=== PATIENT | female | born 2000 | race Two or more races ===

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

== ENCOUNTER 2021-07-15 12:21 | Emergency (ER) | payer MEDICAID, SELFPAY ==
--- NOTE | 2021-07-15 14:42 | PC.NURSE ---
CALLED, NOT IN WR
--- NOTE | 2021-07-15 14:57 | PC.NURSE ---
CALLED, NOT IN WR
== END 2021-07-15 15:12 | disposition left against medical advice (07) ==
LOC: HO.ED 15:03
PROVIDERS: Emergency Provider Emergency Medicine; PCP General Practice
DX: R10.9 Unspecified abdominal pain (principal); R11.10 Vomiting, unspecified

== ENCOUNTER 2022-12-10 15:49 | Outpatient (REF) | payer MEDICAID, SELFPAY ==
[2022-12-11 14:38] LABS: CT PCR NOT DETECTED (Not Detect.); NG PCR NOT DETECTED (Not Detect.)
[2022-12-13 04:02] LABS: Syphilis Screen Nonreactive (Nonreactive)
[2022-12-13 04:37] LABS: HIV AB/AG Nonreactive (Nonreactive); HIV Num 1 0.11 S/CO (0.00-0.99); ~HepC Num1 0.13 S/CO (0.00-0.79); ~Hepatitis C Antibody Nonreactive (Nonreactive)
== END 2022-12-10 15:50 | disposition home or self-care (01) ==
LOC: HO.HHCL 15:49
PROVIDERS: Visit Provider General Practice
DX: Z11.4 Encounter for screening for human immunodeficiency virus [HIV] (principal); R30.0 Dysuria
CPT/HCPCS: 0353U; 36415; 86780; 86803; 87086; 87389

== ENCOUNTER 2023-01-25 10:38 | Outpatient (REF) | payer MEDICAID, SELFPAY ==
[2023-01-25 11:18] LABS: MANUAL DIFF FLAG NO
[2023-01-25 11:43] LABS: Basophils Percent Auto 0.5 % (0-2); Eosinophils Percent Auto 0.3 % (0-4); Hematocrit 41.1 % (37.0-47.0); Hemoglobin 13.4 g/dl (12.0-16.0); Imm Gran Abs Auto 0.02 X10*3/uL (0.00-0.03); Imm Gran Pct Auto 0.3 % (0.0-0.4); Lymphocytes Absolute Auto 2.4 X10*3/uL (1.2-4.9); Lymphocytes Percent Auto 30.3 % (20-40); Mean Corpuscular HGB Conc 32.6 g/dl (31.0-35.0); Mean Corpuscular Hemoglobin 29.5 pg (27.0-33.0); Mean Corpuscular Volume 90.5 fL (80.0-98.0); Mean Platelet Volume 10.2 fL (9.4-12.3); Monocytes Absolute Auto 0.5 X10*3/uL (0.1-1.2); Monocytes Percent Auto 6.7 % (2-11); Neutrophils Absolute Auto 4.8 x10*3/uL (2.0-8.3); Neutrophils Percent Auto 61.9 % (45-73); Platelet Count 351 X10*3/uL (160-400); Red Blood Count 4.54 X10*6/uL (4.20-5.50); Red Cell Distribution Width 13.6 % (11.0-16.0); White Blood Count 7.8 X10*3/uL (4.8-10.8)
[2023-01-25 12:24] LABS: Alanine Aminotransferase 10 U/L (0-31); Albumin Level 4.7 g/dL (3.5-5.0); Alkaline Phosphatase 96 U/L (39-117); Anion Gap 12 (12-20); Aspartate Amino Transferase 18 U/L (5-31); Bilirubin Total 0.6 mg/dL (0.0-1.0); Blood Urea Nitrogen 8 mg/dL (9-16); Calcium 9.9 mg/dL (8.4-10.2); Carbon Dioxide 25 mmol/L (22-29); Chloride 107 mmol/L (96-108); Estimated Glomerular Filt Rate > 60; Glucose Random 93 mg/dL (60-115); Potassium 3.5 mmol/L (3.3-5.1); Sodium 140 mmol/L (135-145); TSH reflex Free T4 1.11 uIU/mL (0.32-4.0); Total Protein 7.7 g/dL (6.5-8.0)
== END 2023-01-25 10:39 | disposition home or self-care (01) ==
LOC: HO.HHCL 10:38
PROVIDERS: Visit Provider Internal Medicine
DX: G43.709 Chronic migraine without aura, not intractable, without status migrainosus (principal)
CPT/HCPCS: 36415; 80053; 84443; 85025

== ENCOUNTER 2023-01-28 18:03 | Outpatient (REF) | payer MEDICAID, SELFPAY ==
[2023-01-28 19:13] LABS: Creatinine Urine 194.42 mg/dL; Microalbum/Creatinine Ratio Ur 87.9 ug/mg cr (<30)
== END 2023-01-28 18:04 | disposition home or self-care (01) ==
LOC: HO.LNP 18:03
PROVIDERS: Visit Provider Nurse Practitioner Primary Care
DX: R80.9 Proteinuria, unspecified (principal)
CPT/HCPCS: 82040; 82043; 82570

== ENCOUNTER 2023-02-07 13:19 | Emergency (ER) | payer MEDICAID, SELFPAY ==
[2023-02-07 14:22] VITALS: BP 111/75; PULSE 70; RESP 17; TEMP 36.5; O2SAT 99; BMI 22.2
--- NOTE | 2023-02-07 14:22 | ED_ITS ---
HPI - General Adult General Chief complaint: Abdominal Pain Stated complaint: abd and back pain nausea vomiting Time Seen by Provider: 02/07/23 20:49 Source: patient, RN notes reviewed and old records reviewed Mode of arrival: ambulatory Limitations: no limitations History of Present Illness HPI narrative: 23-year-old female presents for evaluation of burning with urination and or abdominal pain. Her symptoms started on Tuesday. She went to her primary doctor and reportedly had a negative UA. She reports that now she has flank pain, blood in her urine She denies any fevers, chills That she tried to go to 2 different ERs last night but the wait was too long and she was never seen Denies any vaginal discharge No other complaints or concerns at this time Related Data Previous Rx's Medication Instructions Recorded cefuroxime axetil 250 mg tablet 250 mg PO Q12H #14 tabs 02/07/23 phenazopyridine 200 mg tablet 200 mg PO TID PRN pain with 02/07/23 (Pyridium) urination 6 doses #6 tabs Allergies Allergy/AdvReac Type Severity Reaction Status Date / Time No Known Allergies Allergy Verified 02/07/23 14:23 Review of Systems 2 Constitutional: Constitutional: Denies chills and Denies fever(s) Eyes: Eyes: Denies blurry vision ENT: Denies sore throat Cardiovascular: Cardiovascular: Denies chest pain, Denies Epigastric Pain and Denies dyspnea Respiratory: Respiratory: Denies dyspnea Gastrointestinal: Gastrointestinal: Reports abdominal pain, Reports nausea and Denies vomiting Genitourinary: Genitourinary: Reports difficulty voiding, Reports dysuria, Reports urinary hesitancy and Denies vaginal discharge Musculoskeletal: Musculoskeletal: Reports back pain Integumentary/Breasts: Skin/Breast: Denies rash PMFSH Social History Social History Advance Directives: No Advance Directives Information Provided: Yes Physical Exam ED Vital Signs: Vital Signs - 24 hr 02/07/23 14:22 02/07/23 20:39 Temperature 97.7 F 99.2 F Pulse Rate 70 75 Respiratory Rate 17 16 Blood Pressure 111/75 110/74 Pulse Oximetry 99 98 Oxygen Delivery Method Room Air Room Air BMI result Body Mass Index 22.2 Const General: healthy appearing, comfortable, no acute distress, alert and awake Nutritional Appearance: well nourished Orientation/consciousness: patient oriented x3 HENMT Head: Yes normocephalic and Yes atraumatic Eyes Eyelids: Yes eyelids normal Conjunctivae: conjunctivae normal Sclerae: sclerae normal Corneas: corneas normal Pupils: Equal, round and reactive pupils present EOM: EOMs intact bilaterally Neck Neck: Yes full ROM Resp Effort & Inspection: normal respiratory effort, able to speak in complete sentences and not labored GI Inspection: No distended Palpation (GI): Soft to palpation, not firm, nontender, no guarding and not rigid General: No CVA tenderness and Yes no CVA tenderness Back/Spine/Pelvis Back: no CVA tenderness and No CVA tenderness Skin General skin exam: no rashes or lesions noted and elasticity normal Neuro General: patient oriented x3 Cranial nerves: Yes Equal, round and reactive pupils present and Yes Bilaterally intact EOM present Cognition (Neuro): normal cognition Extrem Other: Moving all extremities well without any obvious deformities Course Course Course Narrative: RME performed by Chanel Salcido PA-C. Patient is a 23 year old assigned female at presenting to the emergency department with abdominal and back pain. Labs ordered. Patient placed back in the waiting room pending room availability and results. Medications Administered Discontinued Medications Generic Name Dose Route Start Last Admin Trade Name Freq PRN Reason Stop Dose Admin Cefuroxime Axetil 250 mg 02/07/23 20:57 02/07/23 21:05 Cefuroxime Axetil 250 Mg Tablet PO 02/07/23 20:58 250 mg ONCE ONE Administration Phenazopyridine HCl 200 mg 02/07/23 20:58 02/07/23 21:05 Phenazopyridine Hcl 200 Mg Tablet PO 02/07/23 20:59 200 mg ONCE ONE Administration Medical Decision Making Medical Decision Making [facility] Narrative: 23-year-old female presents for evaluation of urinary symptoms. Her UA has blood, leukocyte esterase, bacteria and white cells. No evidence of contamination. Her labs are reassuring, no renal dysfunction, no leukocytosis. Vital signs are stable, no evidence of sepsis or systemic infection. Will treat as a UTI with cefuroxime. I have a very low suspicion for obstructive uropathy/ureterolith. I did offer a CT scan of the abdomen pelvis with to which the patient declined Differential Diagnosis Differential Diagnoses: The differential diagnosis associated with the presentation includes cystitis Pyelonephritis Obstructive uropathy Flank pain Lab Data [facility] Lab Attestation statement: I reviewed the patient's lab results. No leukocytosis, no significant anemia. Electrolyte abnormalities. The patient's chloride is just above normal at 109. Normal renal function 02/07/23 14:49 02/07/23 14:49 Labs: Lab Results 02/07/23 Range/Units 14:49 WBC 7.5 (4.8-10.8) X10*3/uL RBC 4.41 (4.20-5.50) X10*6/uL Hgb 13.2 (12.0-16.0) g/dl Hct 39.9 (37.0-47.0) % MCV 90.5 (80.0-98.0) fL MCH 29.9 (27.0-33.0) pg MCHC 33.1 (31.0-35.0) g/dl RDW 13.5 (11.0-16.0) % Plt Count 283 (160-400) X10*3/uL MPV 9.9 (9.4-12.3) fL Immature Gran % (Auto) 0.3 (0.0-0.4) % Neut % (Auto) 57.3 (45-73) % Lymph % (Auto) 33.2 (20-40) % Crosby % (Auto) 8.1 (2-11) % Eos % (Auto) 0.7 (0-4) % Baso % (Auto) 0.4 (0-2) % Lymph # (Auto) 2.5 (1.2-4.9) X10*3/uL [place]by # (Auto) 0.6 (0.1-1.2) X10*3/uL Eos # (Auto) 0.1 (0.0-0.4) X10*3/uL Baso # (Auto) 0.0 (0.0-0.2) X10*3/uL Abs Immat Gran (auto) 0.02 (0.00-0.03) X10*3/uL Absolute Neuts (auto) 4.3 (2.0-8.3) x10*3/uL Absolute Nucleated RBC 0.000 (0.0-0.012) X10*3/uL Nucleated RBC % (auto) 0.0 (0.0-0.2) /100WBC Sodium 141 (135-145) mmol/L Potassium 3.5 (3.3-5.1) mmol/L Chloride 109 H (96-108) mmol/L Carbon Dioxide 23 (22-29) mmol/L Anion Gap 13 (12-20) BUN 7 L (9-16) mg/dL Creatinine 0.68 (0.5-1.4) mg/dL Estim Creat Clear Calc 93.2 Estimated GFR > 60 Random Glucose 92 (60-115) mg/dL Calcium 9.5 (8.4-10.2) mg/dL Magnesium 2.2 (1.6-2.6) mg/dL Total Bilirubin 0.6 (0.0-1.0) mg/dL AST 17 (5-31) U/L ALT 11 (0-31) U/L Alkaline Phosphatase 98 (39-117) U/L Total Protein 7.4 (6.5-8.0) g/dL Albumin 4.4 (3.5-5.0) g/dL Beta HCG, Quant < 2 mIU/mL Urine Color Yellow Urine Appearance Clear Urine pH 6.5 (5.0-9.0) Ur Specific [place] >= 1.030 H (1.005-1.025) Urine Protein Negative (Neg-Trace) mg/dL Urine Glucose (UA) Negative (Negative) mg/dL Urine Ketones 15 (Negative) mg/dL Urine Blood Trace H (Negative) Urine Nitrite Negative (Negative) Ur Leukocyte Esterase Trace H (Negative) Urine RBC 6-10 H (0-2) /HPF Urine WBC 6-10 H (0-5) /HPF Ur Squamous Epith Cells 6-10 (0-2) /HPF Urine Bacteria 1+ (None Seen) Hyaline Casts 0-2 (0-2) /LPF COVID-19 ([facility]) Negative (Negative) COVID-19 Clin Com See Note Tests considered The following testing was considered but not selected: CT abdomen pelvis without contrast to evaluate for obstructive uropathy Discharge Plan Discharge Clinical Impression: Urinary tract infection Patient Disposition: Home, Self-Care Instructions: Urinary Tract Infection in Women (ED) Additional Instructions: Your blood work was reassuring. UA urinalysis did show signs of infection as well as some blood. Take the antibiotic twice daily for the next 7 days Take Pyridium as directed Return for new or worsening symptom Prescriptions: New cefuroxime axetil 250 mg tablet 250 mg PO Q12H Qty: 14 0RF phenazopyridine [Pyridium] 200 mg tablet 200 mg PO TID PRN (Reason: pain with urination) Qty: 6 0RF Stand Alone Forms: Work/School Release Interventions: ED Discharge Assessment Last Done: 02/07/23 21:14 Discharge Date/Time: 02/07/23 21:14
[2023-02-07 14:55] LABS: MANUAL DIFF FLAG NO
[2023-02-07 14:58] LABS: Basophils Percent Auto 0.4 % (0-2); Eosinophils Absolute Auto 0.1 X10*3/uL (0.0-0.4); Eosinophils Percent Auto 0.7 % (0-4); Hematocrit 39.9 % (37.0-47.0); Hemoglobin 13.2 g/dl (12.0-16.0); Imm Gran Abs Auto 0.02 X10*3/uL (0.00-0.03); Imm Gran Pct Auto 0.3 % (0.0-0.4); Lymphocytes Absolute Auto 2.5 X10*3/uL (1.2-4.9); Lymphocytes Percent Auto 33.2 % (20-40); Mean Corpuscular HGB Conc 33.1 g/dl (31.0-35.0); Mean Corpuscular Hemoglobin 29.9 pg (27.0-33.0); Mean Corpuscular Volume 90.5 fL (80.0-98.0); Mean Platelet Volume 9.9 fL (9.4-12.3); Monocytes Absolute Auto 0.6 X10*3/uL (0.1-1.2); Monocytes Percent Auto 8.1 % (2-11); Neutrophils Absolute Auto 4.3 x10*3/uL (2.0-8.3); Neutrophils Percent Auto 57.3 % (45-73); Platelet Count 283 X10*3/uL (160-400); Red Blood Count 4.41 X10*6/uL (4.20-5.50); Red Cell Distribution Width 13.5 % (11.0-16.0); White Blood Count 7.5 X10*3/uL (4.8-10.8)
[2023-02-07 14:59] LABS: Appearance Urine Clear; Color Urine Yellow; Glucose Urine UA Negative (Negative); Leukocyte Esterase Urine Trace (Negative); Nitrite Urine Negative (Negative); PH 6.5 (5.0-9.0); Specific Gravity - Urine >= 1.030 (1.005-1.025); UMIC TRIGGER UACC YES; Urine Blood Trace (Negative); Urine Ketones 15 mg/dL (Negative); Urine Protein Negative (Neg-Trace)
[2023-02-07 15:04] LABS: Bacteria Urine 1+ (None Seen); Hyaline Casts Urine 0-2 /LPF (0-2); UACC Culture Trigger YES
[2023-02-07 15:20] LABS: Alanine Aminotransferase 11 U/L (0-31); Albumin Level 4.4 g/dL (3.5-5.0); Alkaline Phosphatase 98 U/L (39-117); Anion Gap 13 (12-20); Aspartate Amino Transferase 17 U/L (5-31); Bilirubin Total 0.6 mg/dL (0.0-1.0); Blood Urea Nitrogen 7 mg/dL (9-16); Calcium 9.5 mg/dL (8.4-10.2); Carbon Dioxide 23 mmol/L (22-29); Chloride 109 mmol/L (96-108); Creatinine Clr Calc Pharmacy 93.2; Estimated Glomerular Filt Rate > 60; Glucose Random 92 mg/dL (60-115); HCG Quantitative < 2 mIU/mL; Magnesium 2.2 mg/dL (1.6-2.6); Potassium 3.5 mmol/L (3.3-5.1); Sodium 141 mmol/L (135-145); Total Protein 7.4 g/dL (6.5-8.0)
[2023-02-07 15:21] LABS: COVID-19 Test Negative (Negative); IDNOW Serial# 08D9AD1C
[2023-02-07 20:39] VITALS: BP 110/74; PULSE 75; RESP 16; TEMP 37.3; O2SAT 98
[2023-02-07] MEDS: Phenazopyridine HCL 200 MG TABLET PO (21:05)
== END 2023-02-07 21:14 | disposition home or self-care (01) ==
PROVIDERS: Physician Assistant Medical; Emergency Provider Internal Medicine; PCP General Practice
DX: N39.0 Urinary tract infection, site not specified (principal); Z20.822 Contact with and (suspected) exposure to COVID-19
CPT/HCPCS: 80053; 81001; 81003; 83735; 84702; 85025; 87086; 87635; 99283; 99284

== ENCOUNTER 2023-03-31 08:32 | Emergency (ER) | payer MEDICAID, SELFPAY ==
[2023-03-31 08:35] VITALS: BP 108/70; PULSE 79; RESP 17; TEMP 36.1; O2SAT 100; BMI 22.3
--- NOTE | 2023-03-31 08:39 | ED.GENADULT ---
HPI - General Adult General Chief complaint: General Medical Stated complaint: Low Back Abd Pain Nausea Time Seen by Provider: 03/31/23 08:38 Source: patient Mode of arrival: ambulatory Limitations: no limitations History of Present Illness HPI narrative: Patient is a 23-year-old female presenting to the emergency department with complaint of lower abdominal pain, right flank pain and nausea since yesterday morning. She denies fevers. Denies any vomiting, diarrhea, or constipation. Denies any abnormal vaginal discharge. States that she is frequently tested for STIs, was most recently tested 3 weeks ago and has not had any new partners since that time. Denies any urinary frequency, dysuria or hematuria. States the pain is intermittent. MD complaint: lower abdominal pain Onset (ago): day(s) Location: abdomen Radiation: flank (right) Severity: moderate Quality: aching Pain Consistency: intermittent Relieving factors: none Exacerbating factors: none Associated symptoms: nausea/vomiting (reports nausea, denies vomiting) Treatments prior to arrival: none Related Data Previous Rx's Medication Instructions Recorded cefuroxime axetil 250 mg tablet 250 mg PO Q12H #14 tabs 02/07/23 phenazopyridine 200 mg tablet 200 mg PO TID PRN pain with 02/07/23 (Pyridium) urination 6 doses #6 tabs nitrofurantoin macrocrystal 100 mg 100 mg PO BID 5 days #10 caps 03/31/23 capsule phenazopyridine 200 mg tablet 200 mg PO TID PRN pain #6 tabs 03/31/23 Allergies Allergy/AdvReac Type Severity Reaction Status Date / Time No Known Allergies Allergy Verified 02/07/23 14:23 Review of Systems Review of Systems: As per HPI. Yes all other systems are reviewed and are negative Constitutional: Constitutional: Reports as per HPI [facility] Social History Social History Alcohol intake: current Alcohol intake frequency: holidays/special occasions only Smoked in Last 30 Days: No Use of substances other than those prescribed or required for medical reasons: Yes Substance Use Type: Marijuana Advance Directives: No Physical Exam ED Vital Signs: Vital Signs - 24 hr 03/31/23 08:35 03/31/23 09:01 Temperature 96.9 F 98.4 F Pulse Rate 79 79 Respiratory Rate 17 16 Blood Pressure 108/70 103/70 Pulse Oximetry 100 100 Oxygen Delivery Method Room Air Room Air BMI result Body Mass Index 22.3 Vital signs have been reviewed and appear to be correct. Blood pressure normal. Heart rate normal. Respiratory rate normal. Temperature normal. Oxygen saturation normal. Const General: cooperative, healthy appearing and no acute distress Orientation/consciousness: oriented to person, oriented to place, oriented to time and patient oriented x3 Limitations: no limitations HENMT Head: Yes normocephalic and Yes atraumatic Ears: external ears normal General nose exam: Normal external nose present Face and sinus: Yes face symmetric Mouth: oropharynx normal and moist mucous membranes Throat: Yes uvula midline Eyes Pupils: Equal, round and reactive pupils present Neck Neck: Yes normal visual inspection and Yes supple Resp Effort & Inspection: normal respiratory effort and able to speak in complete sentences Auscultation: clear to auscultation bilaterally Cardio Rate: regular rate Rhythm: regular rhythm Heart sounds: S1 normal heart sound present and S2 normal heart sound present GI Palpation (GI): Soft to palpation and nontender Auscultation: normoactive bowel sounds General: Yes no CVA tenderness Back/Spine/Pelvis Back: no CVA tenderness Skin General skin exam: elasticity normal and turgor normal Neuro General: oriented to person, oriented to place, oriented to time, patient oriented x3, moves all extremities, no focal motor deficits and CN's II-XI intact bilaterally Cranial nerves: Yes Equal, round and reactive pupils present Cognition (Neuro): normal cognition Extrem General: Yes full ROM, Yes no pedal edema and Yes no calf tenderness Psych Mental Status: mental status grossly normal Affect: normal affect Thought process: Normal thought process present Medical Decision Making Medical Decision Making MDM Narrative: Patient is a 23-year-old female presenting to the emergency department with complaint of lower abdominal pain, right flank pain and nausea since yesterday morning. On exam patient is awake, A+Ox3, VS WNL, afebrile, normal neurological exam without focal deficits, physical exam findings as above. Given reported symptoms and physical exam findings, initial differential includes UTI/pyelonephritis, ovarian cyst, STI. Do not suspect ovarian torsion, appendicitis. UA noted to have 2+ leukocytes, greater than 50 wbc's, trace blood, 1+ bacteria. Will treat for UTI at this time. CT NG urine pending, will update patient with any positive results. Offered pelvic exam which patient declined citing recent exam. Low suspicion for calculi. Will treat with Macrobid and Pyridium. Patient specifically requesting referral to GI, now stating she intermittently has abnormal bowel movements. Will put referral on d/c paperwork. Return precautions discussed at bedside. Instructed patient to follow-up with PCP. Patient verbalized understanding of and agreement with plan. Differential Diagnosis Differential Diagnoses: The differential diagnosis associated with the presentation includes As per [facility]. Lab Data [facility] Lab Attestation statement: I reviewed the patient's lab results. As per [facility]. Labs: Lab Results 03/31/23 Range/Units 09:01 Urine Color Yellow Urine Appearance Cloudy Urine pH 7.0 (5.0-9.0) Ur Specific [place] 1.020 (1.005-1.025) Urine Protein Negative (Neg-Trace) mg/dL Urine Glucose (UA) Negative (Negative) mg/dL Urine Ketones Negative (Negative) mg/dL Urine Blood Trace H (Negative) Urine Nitrite Negative (Negative) Ur Leukocyte Esterase Moderate (2+) H (Negative) Urine RBC 3-5 H (0-2) /HPF Urine WBC >50 H (0-5) /HPF Ur Squamous Epith Cells 6-10 (0-2) /HPF Urine Bacteria 1+ (None Seen) Hyaline Casts 0-2 (0-2) /LPF Urine Test NEGATIVE (NEGATIVE) External Record Review External record reviewed: Inpatient record, Office record and Outpatient record Prescription Management I considered prescription management with: Antibiotic Discharge Plan Discharge Clinical Impression: Urinary tract infection Qualifiers: Urinary tract infection type: acute cystitis Hematuria presence: with hematuria Qualified Code(s): N30.01 - Acute cystitis with hematuria Patient Disposition: Home, Self-Care Instructions: Urinary Tract Infection in Women (DC) Additional Instructions: You have been evaluated in the emergency department today for your urinary symptoms. Your evaluation, including urinalysis, suggests that your symptoms are due to urinary tract infection. Please take your prescribed antibiotics for the full course of medication as directed. Please follow-up with your primary care provider within 2 days. Return to the emergency department if you experience fevers 100.4? F or greater, worsening or uncontrolled pain, vomiting, flank pain, or for any other concerning symptoms. Prescriptions: New nitrofurantoin macrocrystal 100 mg capsule 100 mg PO BID 5 Days Qty: 10 0RF Rx Instructions: must administer with a meal/food phenazopyridine 200 mg tablet 200 mg PO TID PRN (Reason: pain) Qty: 6 0RF No Action cefuroxime axetil 250 mg tablet 250 mg PO Q12H Qty: 14 0RF phenazopyridine [Pyridium] 200 mg tablet 200 mg PO TID PRN (Reason: pain with urination) Qty: 6 0RF Referrals: [facility] [Provider Group]
[2023-03-31 09:01] VITALS: BP 103/70; PULSE 79; RESP 16; TEMP 36.9; O2SAT 100
--- NOTE | 2023-03-31 09:05 | PC.NURSE ---
this RN resumed care of pt at this time - a&ox3, vss and up to date at this time. pt comes in today d/t increasingly abd pain/nausea/dizziness/lightheadedness/lower back pain x 1 day. pain started yesterday. pt denies vomiting but verbalizes she has been having some diarrhea. denies blood in stool. denies fever/chills/urinary sx. pt states status of is unknown. urine obtained/sent to lab by [facility]. pt speaking w/ provider at this time - pt aware of plan of care at this time. respirations even and unlabored. call [facility] placed within reach.
[2023-03-31 09:14] LABS: Appearance Urine Cloudy; Color Urine Yellow; Glucose Urine UA Negative (Negative); Leukocyte Esterase Urine Moderate (2+) (Negative); Nitrite Urine Negative (Negative); UMIC TRIGGER UACC YES; Urine Blood Trace (Negative); Urine Ketones Negative (Negative); Urine Protein Negative (Neg-Trace)
[2023-03-31 09:18] LABS: Bacteria Urine 1+ (None Seen); Hyaline Casts Urine 0-2 /LPF (0-2); UACC Culture Trigger YES; WBC Urine >50 /HPF (0-5)
[2023-03-31 09:21] LABS: UPreg QC Valid YES; Urine Pregnancy NEGATIVE (NEGATIVE)
== END 2023-03-31 09:58 | disposition home or self-care (01) ==
PROVIDERS: Emergency Provider Emergency Medicine; PCP General Practice
DX: N30.01 Acute cystitis with hematuria (principal); Z79.899 Other long term (current) drug therapy
CPT/HCPCS: 81001; 81025; 87086; 99283; 99284

== ENCOUNTER 2023-06-01 10:47 | Outpatient (REF) | payer MEDICAID, SELFPAY ==
[2023-06-02 07:13] LABS: HCG Tumor Marker <5 mIU/mL
== END 2023-06-01 10:48 | disposition home or self-care (01) ==
LOC: HO.HHCL 10:47
PROVIDERS: Visit Provider Advanced Practice Midwife
DX: N93.9 Abnormal uterine and vaginal bleeding, unspecified (principal)
CPT/HCPCS: 36415; 84702

== ENCOUNTER 2023-07-19 10:06 | Outpatient (REF) | payer MEDICAID, SELFPAY ==
[2023-07-19 15:38] LABS: TSH reflex Free T4 0.62 uIU/mL (0.32-4.0)
[2023-07-20 20:33] LABS: Transglutaminase Ab IgG <1.0 U/mL; Transglutaminase IgA <1.0 U/mL
== END 2023-07-19 10:07 | disposition home or self-care (01) ==
LOC: HO.LAB 10:06
PROVIDERS: PCP General Practice; Visit Provider Nurse Practitioner
DX: R63.4 Abnormal weight loss (principal); R14.0 Abdominal distension (gaseous); R11.0 Nausea; R19.7 Diarrhea, unspecified
CPT/HCPCS: 36415; 84443; 86003; 86140; 86364; 99212

== ENCOUNTER 2023-07-19 10:06 | Outpatient (AMB) | payer MEDICAID, SELFPAY ==
--- NOTE | 2023-07-19 10:07 | MHC.OFFVIS ---
Intake Vital Signs 07/19/23 10:22 Height 5 ft Weight 108 lb 14.534 oz BMI 21.3 BP 100/61 Blood Pressure Location Rt brachial Position Sitting Intake Visit Reasons: Irritable bowel syndrome Intake Note: New patient in office today for Irritable bowel syndrome. CC: Patient reports she has stopped eating a lot of foods out of her diet because they hurt her stomach. She reports nausea sometimes. Patient c/o constipation most of the time, a lot of hiccups, and abdominal pain if she eats red meats or some other foods that affect her stomach. Per patient she was diagnosed with IBS at a GI at [facility]. Access Database Developer Required: No Accompanied by: Self / Same As Patient Allergies lactose Allergy (Severe, Verified 07/19/23 10:37) Vomiting orange Allergy (Intermediate, Verified 07/19/23 10:37) Itching No Known Drug Allergies Allergy (Verified 07/19/23 10:37) none HPI Irritable bowel syndrome HPI Details 23-year-old female here for initial evaluation of IBS. She is referred by Mago Lara of [facility]. PMX ER diagnosis of colitis (not our ER) Family history of Crohn's disease Asthma Allergic rhinitis Migraines Lactose intolerance Cannabis use disorder severe Alcohol use disorder Major depressive disorder ? Interstitial cystitis * SURGICAL HISTORY Tonsillectomy EGD/colonoscopy * ALLERGIES: NKDA * [employer] LABS: None since 01/2023 TODAY'S VISIT She says she was dx'd with IBS 7 years ago at [facility] child gastro, they did an EGD/colonoscopy and was told it was IBS then I never saw them again. She will move her bowels tid normal formed but she has to strain and push and massage her stomach to get it out, r/t pain when trying to move her bowels. She has a lot of cramping. She has trouble with cows milk but she tolerated ice cream and some cheese. Stress also is a problem. She says her bowels manifest as CIC, she only has diarrhea with red meat and too much dairy. Crohns runs in her family and TICS along with a paternal uncle with CRC. Her brother has Celiac disease. Her father had GERD and PUD. She is concerned about her weight loss saying my diet is so limited, but when I ask what she limits it is only red meat or dairy. She eats a lot of rice and beans as this is what her mom cooks, she tolerates chicken and fish. Her appetite is variable, when she experiences a lot of bloating she has early satiety, but at times I eat platefuls and platefuls. She has a lot of bloating that she can not connect to certain foods and this will cause stabbing pains over the entire abd periumbilically and below the umbilicus that moves. This causes nausea and at times she will make herself vomit to feel better but this does not cause vomiting of itself. She had an ER visit at [facility] and they said something about colitis, but I don't know what kind. I can't find this CT under [facility] website, but she has also been seen at [facility]. Get records from [facility]. Food allergy testing, [place] of [place] as there is a very strong FHX of GB disease in mother, grandmother, paternal cousin. st loss form 121 to 108 currently Return office visit in 4 weeks to go over what we have at that point. [facility] Surgical History H/O wisdom tooth extraction S/P tonsillectomy History of esophagogastroduodenoscopy (EGD) H/O colonoscopy Family History Father Cancer of kidney Mother Cervical cancer Paternal Uncle Colon cancer Maternal Aunt Breast cancer Paternal Grandfather Prostate cancer Social History Household Members: Family Housing: Apartment 75 years or older and lives alone: No Alcohol intake: current Alcohol intake frequency: a few times a week Comment: weekends Patient Tobacco Use Status: Never used Tobacco Substance Use Type: Marijuana Review of Systems Const Denies fatigue, Denies fever(s), Denies night sweats, Denies poor appetite and Reports weight loss Eyes Details: glasses Reports requires corrective lenses ENT Reports Normal hearing present, Denies dental pain, Denies dysphagia, Denies hearing loss, Denies mouth pain, Denies odynophagia, Denies throat swelling, Denies tongue swelling and Reports other (Dentition adequate) Card Reports no additional complaints Resp Reports no additional complaints GI Details: Reports abdominal pain, Denies melena, Reports bloating, Denies hematochezia, Reports constipation, Denies GI cramping, Denies dysphagia, Denies excessive flatus, Denies early satiety, Reports dyspepsia, Reports heartburn, Reports diarrhea, Reports nausea, Denies odynophagia, Denies vomiting and Denies hematemesis Skin/Breast Denies pruritus, Denies lesions, Denies rash and Denies jaundice Neuro Reports Normal hearing present and Denies Abnormal speech present Psych Reports anxiety Endo Denies fatigue Aller/Immun Denies throat swelling and Denies tongue swelling Physical Exam Vital Signs: Last Vital Signs BP 100/61 07/19/23 10:22 BMI result Body Mass Index 21.3 Const General: cooperative, no acute distress, well developed and well groomed Nutritional Appearance: average body habitus and well nourished Orientation/consciousness: oriented to person, oriented to place and oriented to time Limitations: No language barrier HEENT Head: Yes normocephalic and Yes atraumatic Eyes General: appearance normal, both eyes and all related structures Pupils: Equal, round and reactive pupils present Neck Neck: Yes normal visual inspection and Yes no lymphadenopathy Thyroid: Thyroid normal Resp Effort & Inspection: normal respiratory effort and able to speak in complete sentences Auscultation: clear to auscultation bilaterally Cardio Rate: regular rate Rhythm: regular rhythm Heart sounds: Normal, physiologic split S2 sound present Peripheral pulses: radial pulses present and posterior tibial pulses present GI Inspection: No distended and No Abdominal panniculus present Palpation (GI): Soft to palpation, nontender, no guarding, not rigid and No hepatosplenomegaly present Percussion: Yes normal to percussion Auscultation: normal bowel sounds Rectal Exam - Female: deferred Skin General skin exam: no rashes or lesions noted, turgor normal, skin not dry, no jaundice, No spider nevi and no striae Rashes: no rashes Nails: normal Neuro General: oriented to person, oriented to place and oriented to time Cranial nerves: Yes Equal, round and reactive pupils present and Yes Normal hearing present Speech: No Abnormal speech present Extrem General: Yes normal to inspection, No clubbing, No cyanosis and No edema Psych Appearance: grossly normal and well kempt Mental Status: mental status grossly normal Speech and movement: Normal speech and movement present Affect: normal affect Attitude: cooperative Thought process: Normal thought process present and not confabulating Thought content: Normal thought content present Insight: Limited insight present (Psych) Judgement: Limited judgement present (Psych) Assessment & Plan Assessment & Plan (1) Weight loss: Code(s): R63.4 - Abnormal weight loss (2) Abdominal bloating: Code(s): R14.0 - Abdominal distension (gaseous) (3) Nausea: Code(s): R11.0 - Nausea (4) Diarrhea: Code(s): R19.7 - Diarrhea, unspecified Plan She says she was dx'd with IBS 7 years ago at [facility] child [facility], they did an EGD/colonoscopy and was told it was IBS then I never saw them again. She will move her bowels tid normal formed but she has to strain and push and massage her stomach to get it out, r/t pain when trying to move her bowels. She has a lot of cramping. She has trouble with cows milk but she tolerated ice cream and some cheese. Stress also is a problem. She says her bowels manifest as CIC, she only has diarrhea with red meat and too much dairy. Crohns runs in her family and TICS along with a paternal uncle with CRC. Her brother has Celiac disease. Her father had GERD and PUD. She is concerned about her weight loss saying my diet is so limited, but when I ask what she limits it is only red meat or dairy. She eats a lot of rice and beans as this is what her mom cooks, she tolerates chicken and fish. Her appetite is variable, when she experiences a lot of bloating she has early satiety, but at times I eat platefuls and platefuls. She has a lot of bloating that she can not connect to certain foods and this will cause stabbing pains over the entire abd periumbilically and below the umbilicus that moves. This causes nausea and at times she will make herself vomit to feel better but this does not cause vomiting of itself. She had an ER visit at [facility] and they said something about colitis, but I don't know what kind. I can't find this CT under [facility] website, but she has also been seen at [facility]. Get records from [facility]. Food allergy testing, [place] of [place] as there is a very strong FHX of GB disease in mother, grandmother, paternal cousin. st loss form 121 to 108 currently Return office visit in 4 weeks to go over what we have at that point. Orders: Orders Rast Allergen Today R11.0 - Nausea, R14.0 - Abdominal distension (gaseous), R19.7 - Diarrhea, unspecified, R63.4 - Abnormal weight loss Transglutaminase IgA Today R11.0 - Nausea, R14.0 - Abdominal distension (gaseous), R19.7 - Diarrhea, unspecified, R63.4 - Abnormal weight loss Transglutaminase Ab IgG Today R11.0 - Nausea, R14.0 - Abdominal distension (gaseous), R19.7 - Diarrhea, unspecified, R63.4 - Abnormal weight loss TSH reflex Free T4 Today R11.0 - Nausea, R14.0 - Abdominal distension (gaseous), R19.7 - Diarrhea, unspecified, R63.4 - Abnormal weight loss C Reactive Protein Today R11.0 - Nausea, R14.0 - Abdominal distension (gaseous), R19.7 - Diarrhea, unspecified, R63.4 - Abnormal weight loss Calprotectin, Fecal Today R11.0 - Nausea, R14.0 - Abdominal distension (gaseous), R19.7 - Diarrhea, unspecified, R63.4 - Abnormal weight loss Pancreatic Elastase-1 Today R11.0 - Nausea, R14.0 - Abdominal distension (gaseous), R19.7 - Diarrhea, unspecified, R63.4 - Abnormal weight loss US abdomen complete Today R11.0 - Nausea, R14.0 - Abdominal distension (gaseous), R19.7 - Diarrhea, unspecified, R63.4 - Abnormal weight loss Coding Level of Care Code New Pt Level 3 (13794) Diagnoses Weight loss R63.4 Abdominal bloating R14.0 Nausea R11.0 Diarrhea R19.7
[2023-07-19 10:22] VITALS: BP 100/61; BMI 21.3
== END 2023-07-19 11:35 | disposition home or self-care (01) ==
PROVIDERS: PCP General Practice; Visit Provider Nurse Practitioner
DX: R63.4 Abnormal weight loss (principal); R14.0 Abdominal distension (gaseous); R11.0 Nausea; R19.7 Diarrhea, unspecified
CPT/HCPCS: 99203

== ENCOUNTER 2023-08-01 08:37 | Outpatient (REF) | payer MEDICAID, SELFPAY ==
--- NOTE | ~2023-08-01 | US_ITS ---
EXAMINATION: US ABDOMEN COMPLETE CLINICAL INFORMATION: Abnormal weight loss. COMPARISON: None available. TECHNIQUE: Real-time imaging of the abdominal viscera. FINDINGS: PANCREAS: Normal. ABDOMINAL AORTA: The proximal, mid, and distal segments are normal in caliber. INFERIOR VENA CAVA: Visualized portions are normal. LIVER: Normal. The liver is normal in size. The liver contour is normal. Parenchymal echogenicity is normal. No focal hepatic lesion. There is no intrahepatic biliary duct dilatation seen. GALLBLADDER: Normal. Contracted but grossly unremarkable. COMMON BILE DUCT: Normal in caliber measuring 0.25 cm in diameter. RIGHT KIDNEY: Normal. No hydronephrosis. No renal calculi or focal parenchymal lesions. The kidney measures 11.2 cm in maximum dimension. LEFT KIDNEY: Normal. No hydronephrosis. No renal calculi or focal parenchymal lesions. The kidney measures 11.7 cm in maximum dimension. SPLEEN: Normal. The spleen measures 10.2 cm in maximum dimension. FREE FLUID: None. US/US abdomen complete IMPRESSION: Unremarkable abdominal ultrasound.
== END 2023-08-01 08:38 | disposition home or self-care (01) ==
LOC: HO.HMGCX 08:37
PROVIDERS: PCP General Practice; Visit Provider Nurse Practitioner
DX: R63.4 Abnormal weight loss (principal); R14.0 Abdominal distension (gaseous); R11.0 Nausea; R19.7 Diarrhea, unspecified
CPT/HCPCS: 76700

== ENCOUNTER 2023-08-02 08:25 | Emergency (ER) | payer MEDICAID, SELFPAY ==
[2023-08-02 08:57] VITALS: BP 106/62; PULSE 80; RESP 18; TEMP 36.6; O2SAT 98; BMI 17.8
[2023-08-02 12:04] LABS: MANUAL DIFF FLAG NO
[2023-08-02 12:05] LABS: Basophils Percent Auto 0.4 % (0-2); Eosinophils Absolute Auto 0.1 X10*3/uL (0.0-0.4); Eosinophils Percent Auto 0.6 % (0-4); Hematocrit 38.4 % (37.0-47.0); Hemoglobin 12.8 g/dl (12.0-16.0); Imm Gran Abs Auto 0.02 X10*3/uL (0.00-0.03); Imm Gran Pct Auto 0.2 % (0.0-0.4); Lymphocytes Absolute Auto 2.5 X10*3/uL (1.2-4.9); Lymphocytes Percent Auto 29.7 % (20-40); Mean Corpuscular HGB Conc 33.3 g/dl (31.0-35.0); Mean Corpuscular Hemoglobin 29.9 pg (27.0-33.0); Mean Corpuscular Volume 89.7 fL (80.0-98.0); Mean Platelet Volume 9.2 fL (9.4-12.3); Monocytes Absolute Auto 0.5 X10*3/uL (0.1-1.2); Monocytes Percent Auto 6.4 % (2-11); Neutrophils Absolute Auto 5.2 x10*3/uL (2.0-8.3); Neutrophils Percent Auto 62.7 % (45-73); Platelet Count 365 X10*3/uL (160-400); Red Blood Count 4.28 X10*6/uL (4.20-5.50); Red Cell Distribution Width 13.2 % (11.0-16.0); White Blood Count 8.3 X10*3/uL (4.8-10.8)
[2023-08-02 12:24] LABS: Alanine Aminotransferase 15 U/L (0-31); Albumin Level 4.1 g/dL (3.5-5.0); Alkaline Phosphatase 100 U/L (39-117); Anion Gap 11 (12-20); Aspartate Amino Transferase 20 U/L (5-31); Bilirubin Total 0.2 mg/dL (0.0-1.0); Blood Urea Nitrogen 6 mg/dL (9-16); Calcium 9.2 mg/dL (8.4-10.2); Carbon Dioxide 24 mmol/L (22-29); Chloride 109 mmol/L (96-108); Creatinine Clr Calc Pharmacy 111.4; Estimated Glomerular Filt Rate > 60; Glucose Random 92 mg/dL (60-115); Lipase 25 U/L (8-78); Potassium 3.6 mmol/L (3.3-5.1); Sodium 140 mmol/L (135-145); Total Protein 7.2 g/dL (6.5-8.0)
[2023-08-02 12:35] LABS: HCG Quantitative < 2 mIU/mL
== END 2023-08-02 16:23 | disposition left against medical advice (07) ==
PROVIDERS: Physician Assistant Medical; Emergency Provider Emergency Medicine; PCP General Practice
DX: R11.10 Vomiting, unspecified (principal); R10.9 Unspecified abdominal pain; Z79.899 Other long term (current) drug therapy
CPT/HCPCS: 36415; 80053; 83690; 84702; 85025; 99281; 99283

== ENCOUNTER 2023-08-16 08:05 | Outpatient (AMB) | payer MEDICAID, SELFPAY ==
--- NOTE | 2023-08-16 08:06 | MHC.OFFVIS ---
Vital Signs 08/16/23 08:09 Height 5 ft 0.5 in Weight 112 lb 6.972 oz BMI 21.6 BP 99/72 Blood Pressure Location Rt brachial Position Sitting Pulse 94 Intake Visit Reasons: 4 wk follow up Irritable bowel syndrome Intake Note: Kary presents in the office as a 4 week follow up for IBS. CC: She states that she was recently in the ED - she had the stomach bug with diarrhea and vomiting and she was admitted for dehydration. She states that she is feeling okay since then but her stomach is still sensitive. 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 She will move her bowels tid normal formed but she has to strain and push and massage her stomach to get it out, r/t pain when trying to move her bowels. She has a lot of cramping. She has trouble with cows milk but she tolerated ice cream and some cheese. Stress also is a problem. She says her bowels manifest as CIC, she only has diarrhea with red meat and too much dairy. Crohns runs in her family and TICS along with a paternal uncle with CRC. Her brother has Celiac disease. Her father had GERD and PUD. She is concerned about her weight loss saying my diet is so limited, but when I ask what she limits it is only red meat or dairy. She eats a lot of rice and beans as this is what her mom cooks, she tolerates chicken and fish. Her appetite is variable, when she experiences a lot of bloating she has early satiety, but at times I eat platefuls and platefuls. She has a lot of bloating that she can not connect to certain foods and this will cause stabbing pains over the entire abd periumbilically and below the umbilicus that moves. This causes nausea and at times she will make herself vomit to feel better but this does not cause vomiting of itself. She had an ER visit at [facility] and they said something about colitis, but I don't know what kind. I can't find this CT under [facility] website, but she has also been seen at [facility]. Get records from [facility]. Food allergy testing, US of GB as there is a very strong FHX of GB disease in mother, grandmother, paternal cousin. st loss form 121 to 108 currently Return office visit in 4 weeks to go over what we have at that point. Orders: Orders Rast Allergen Today R11.0 - Nausea, R14.0 - Abdominal distension (gaseous), R19.7 - Diarrhea, unspecified, R63.4 - Abnormal weight loss Transglutaminase IgA Today R11.0 - Nausea, R14.0 - Abdominal distension (gaseous), R19.7 - Diarrhea, unspecified, R63.4 - Abnormal weight loss Transglutaminase Ab IgG Today R11.0 - Nausea, R14.0 - Abdominal distension (gaseous), R19.7 - Diarrhea, unspecified, R63.4 - Abnormal weight loss TSH reflex Free T4 Today R11.0 - Nausea, R14.0 - Abdominal distension (gaseous), R19.7 - Diarrhea, unspecified, R63.4 - Abnormal weight loss C Reactive Protein Today R11.0 - Nausea, R14.0 - Abdominal distension (gaseous), R19.7 - Diarrhea, unspecified, R63.4 - Abnormal weight loss Calprotectin, Fecal Today R11.0 - Nausea, R14.0 - Abdominal distension (gaseous), R19.7 - Diarrhea, unspecified, R63.4 - Abnormal weight loss Pancreatic Elastase-1 Today R11.0 - Nausea, R14.0 - Abdominal distension (gaseous), R19.7 - Diarrhea, unspecified, R63.4 - Abnormal weight loss US abdomen complete Today R11.0 - Nausea, R14.0 - Abdominal distension (gaseous), R19.7 - Diarrhea, unspecified, R63.4 - Abnormal weight loss LABS: Laboratory Tests 07/19/23 07/19/23 08/02/23 12:10 12:10 11:49 C-Reactive Protein 0.10 Lipase 25 Tiss Transglutamin IgG <1.0 Tiss Transglutamin IgA <1.0 THE RAST REQUISITION FORM WAS ILLEGIBLE THE TEST WAS NOT PERFORMED, IT DOES NOT APPEAR THAT THE FECAL CALPROTECTIN WAS OBTAINED ULTRASOUND OF THE ABDOMEN 08/03/23 FINDINGS: PANCREAS: Normal. ABDOMINAL AORTA: The proximal, mid, and distal segments are normal in caliber. INFERIOR VENA CAVA: Visualized portions are normal. LIVER: Normal. The liver is normal in size. The liver contour is normal. Parenchymal echogenicity is normal. No focal hepatic lesion. There is no intrahepatic biliary duct dilatation seen. GALLBLADDER: Normal. Contracted but grossly unremarkable. COMMON BILE DUCT: Normal in caliber measuring 0.25 cm in diameter. RIGHT KIDNEY: Normal. No hydronephrosis. No renal calculi or focal parenchymal lesions. The kidney measures 11.2 cm in maximum dimension. LEFT KIDNEY: Normal. No hydronephrosis. No renal calculi or focal parenchymal lesions. The kidney measures 11.7 cm in maximum dimension. SPLEEN: Normal. The spleen measures 10.2 cm in maximum dimension. FREE FLUID: None. US/US abdomen complete IMPRESSION: Unremarkable abdominal ultrasound. TODAY'S VISIT She was seen in the ER recently and had labs that were all normal except for possible dehydration. There does not appear to be an ER note because she left without treatment. She went home and tried to hydrate has been trying to force herself to eat more because she is lost more weight again. Her BMI is currently 17 she is down another 10-15 lb which is quite concerning. Right now her nausea is quiescent as is her diarrhea. I am going to try putting her on Megace to increase her appetite along with a trial of dicyclomine because despite solid stool she still has severe bloating. I think simethicone is also reasonable. At this point we need to spread a wider net. We are going to get a CT scan of the abdomen pelvis since she has a past history of possible colon inflammation in the right lower quadrant area, also going to get an EGD and colonoscopy along with a gastric emptying study. I will also provide her with more Zofran for her episodic nausea and vomiting. At this point I will see her in 6 weeks to see how she is progressing on the medications. She is going to go back to recollect the RAST since the requisition was illegible and she is also going to do the stool studies. 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 [facility] Medical History Weight loss Surgical History H/O wisdom tooth extraction S/P tonsillectomy History of esophagogastroduodenoscopy (EGD) H/O colonoscopy Family History Father Cancer of kidney Mother Cervical cancer Paternal Uncle Colon cancer Maternal Aunt Breast cancer Paternal Grandfather Prostate cancer Social History Household Members: Family Housing: Apartment Alcohol intake: current Alcohol intake frequency: a few times a week Comment: weekends Patient Tobacco Use Status: Never used Tobacco Substance Use Type: Marijuana Review of Systems Const Denies fatigue, Denies fever(s), Denies night sweats, Reports poor appetite and Reports weight loss ENT Reports Normal hearing present, Denies dental pain, Denies dysphagia, Denies hearing loss, Denies mouth pain, Denies odynophagia, Denies throat swelling, Denies tongue swelling and Reports other (Dentition adequate) Card Reports no additional complaints Resp Reports no additional complaints GI Details: Reports abdominal pain, Denies melena, Reports bloating, Denies hematochezia, Denies constipation, Denies GI cramping, Denies dysphagia, Denies excessive flatus, Denies early satiety, Denies heartburn, Reports diarrhea, Reports nausea, Denies odynophagia, Reports vomiting and Denies hematemesis Skin/Breast Denies pruritus, Denies lesions, Denies rash and Denies jaundice Neuro Reports Normal hearing present and Denies Abnormal speech present Endo Denies fatigue Aller/Immun Denies throat swelling and Denies tongue swelling Physical Exam Vital Signs: Last Vital Signs Pulse 94 08/16/23 08:09 BP 99/72 08/16/23 08:09 BMI result Body Mass Index 21.6 Const General: cooperative, no acute distress, well developed and well groomed Nutritional Appearance: well nourished and underweight Orientation/consciousness: oriented to person, oriented to place and oriented to time Limitations: No language barrier HEENT Head: Yes normocephalic and Yes atraumatic Eyes General: appearance normal, both eyes and all related structures Pupils: Equal, round and reactive pupils present Neck Neck: Yes normal visual inspection and Yes no lymphadenopathy Thyroid: Thyroid normal Resp Effort & Inspection: normal respiratory effort and able to speak in complete sentences Auscultation: clear to auscultation bilaterally Cardio Rate: regular rate Rhythm: regular rhythm Heart sounds: Normal, physiologic split S2 sound present Peripheral pulses: radial pulses present and posterior tibial pulses present GI Inspection: No distended and No Abdominal panniculus present Palpation (GI): Soft to palpation, nontender, no guarding, not rigid and No hepatosplenomegaly present Percussion: Yes normal to percussion Auscultation: normal bowel sounds Rectal Exam - Female: deferred Skin General skin exam: no rashes or lesions noted, turgor normal, skin not dry, no jaundice, No spider nevi and no striae Rashes: no rashes Nails: normal Neuro General: oriented to person, oriented to place and oriented to time Cranial nerves: Yes Equal, round and reactive pupils present and Yes Normal hearing present Speech: No Abnormal speech present Extrem General: Yes normal to inspection, No clubbing, No cyanosis and No edema Psych Appearance: grossly normal and well kempt Mental Status: mental status grossly normal Speech and movement: Normal speech and movement present Affect: normal affect Attitude: cooperative Thought process: Normal thought process present and not confabulating Thought content: Normal thought content present Insight: Limited insight present (Psych) Judgement: Limited judgement present (Psych) Results Reviewed Results Reviewed: Laboratory Tests 07/19/23 07/19/23 08/02/23 12:10 12:10 11:49 C-Reactive Protein 0.10 Lipase 25 Tiss Transglutamin IgG <1.0 Tiss Transglutamin IgA <1.0 THE RAST REQUISITION FORM WAS ILLEGIBLE THE TEST WAS NOT PERFORMED, IT DOES NOT APPEAR THAT THE FECAL CALPROTECTIN WAS OBTAINED ULTRASOUND OF THE ABDOMEN 08/03/23 FINDINGS: PANCREAS: Normal. ABDOMINAL AORTA: The proximal, mid, and distal segments are normal in caliber. INFERIOR VENA CAVA: Visualized portions are normal. LIVER: Normal. The liver is normal in size. The liver contour is normal. Parenchymal echogenicity is normal. No focal hepatic lesion. There is no intrahepatic biliary duct dilatation seen. GALLBLADDER: Normal. Contracted but grossly unremarkable. COMMON BILE DUCT: Normal in caliber measuring 0.25 cm in diameter. RIGHT KIDNEY: Normal. No hydronephrosis. No renal calculi or focal parenchymal lesions. The kidney measures 11.2 cm in maximum dimension. LEFT KIDNEY: Normal. No hydronephrosis. No renal calculi or focal parenchymal lesions. The kidney measures 11.7 cm in maximum dimension. SPLEEN: Normal. The spleen measures 10.2 cm in maximum dimension. FREE FLUID: None. US/US abdomen complete IMPRESSION: Unremarkable abdominal ultrasound Assessment & Plan Assessment & Plan (1) Diarrhea: Code(s): R19.7 - Diarrhea, unspecified Category: Medical (2) Nausea: Code(s): R11.0 - Nausea Category: Medical (3) Abdominal bloating: Code(s): R14.0 - Abdominal distension (gaseous) Category: Medical (4) Lactose intolerance: Code(s): E73.9 - Lactose intolerance, unspecified Category: Medical (5) Adult failure to thrive: Code(s): R62.7 - Adult failure to thrive Category: Medical (6) Weight loss, abnormal: Code(s): R63.4 - Abnormal weight loss Category: Medical (7) Abdominal pain: Code(s): R10.9 - Unspecified abdominal pain Category: Medical Plan She was seen in the ER recently and had labs that were all normal except for possible dehydration. There does not appear to be an ER note because she left without treatment. She went home and tried to hydrate has been trying to force herself to eat more because she is lost more weight again. Her BMI is currently 17 she is down another 10-15 lb which is quite concerning. Right now her nausea is quiescent as is her diarrhea. I am going to try putting her on Megace to increase her appetite along with a trial of dicyclomine because despite solid stool she still has severe bloating. I think simethicone is also reasonable. At this point we need to spread a wider net. We are going to get a CT scan of the abdomen pelvis since she has a past history of possible colon inflammation in the right lower quadrant area, also going to get an EGD and colonoscopy along with a gastric emptying study. I will also provide her with more Zofran for her episodic nausea and vomiting. At this point I will see her in 6 weeks to see how she is progressing on the medications. She is going to go back to recollect the RAST since the requisition was illegible and she is also going to do the stool studies. 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 Orders: Orders NM gastric emptying study 08/16/23 R11.0 - Nausea, R63.4 - Abnormal weight loss EGD/[place] Combo - GI Use Only 08/16/23 R63.4 - Abnormal weight loss, R10.9 - Unspecified abdominal pain Blood Urea Nitrogen 08/16/23 R10.9 - Unspecified abdominal pain, R63.4 - Abnormal weight loss Rast Allergen 08/16/23 R19.7 - Diarrhea, unspecified CT abdomen pelvis w IV con 08/16/23 R63.4 - Abnormal weight loss, R10.9 - Unspecified abdominal pain Creatinine 08/16/23 R10.9 - Unspecified abdominal pain, R63.4 - Abnormal weight loss Medications: New dicyclomine 20 mg PO QID 120 tabs 3RF 30 days R19.7 - Diarrhea, unspecified ondansetron HCl 4 mg PO BID-TID PRN 30 tabs 2RF nausea and vomiting 14 days R11.0 - Nausea megestrol 40 mg PO BID 60 tabs 2RF R62.7 - Adult failure to thrive, R63.4 - Abnormal weight loss simethicone after meals 180 mg PO .tidac 90 caps 3RF 30 days Coding Level of Care Code Est Pt Level 4 (77328) Diagnoses Diarrhea R19.7 Nausea R11.0 Abdominal bloating R14.0 Lactose intolerance E73.9 Adult failure to thrive R62.7 Weight loss, abnormal R63.4 Abdominal pain R10.9
[2023-08-16 08:09] VITALS: BP 99/72; PULSE 94; BMI 21.6
== END 2023-08-16 08:50 | disposition home or self-care (01) ==
PROVIDERS: PCP General Practice; Visit Provider Nurse Practitioner
DX: R19.7 Diarrhea, unspecified (principal); R11.0 Nausea; R14.0 Abdominal distension (gaseous); E73.9 Lactose intolerance, unspecified; R62.7 Adult failure to thrive; R63.4 Abnormal weight loss; R10.9 Unspecified abdominal pain
CPT/HCPCS: 99214

== ENCOUNTER → 2023-08-16 08:05 | Outpatient (BNVA) | payer MEDICAID, SELFPAY | PROVIDERS: PCP General Practice; Visit Provider Nurse Practitioner | DX: R11.0 Nausea (principal); R19.7 Diarrhea, unspecified; R63.4 Abnormal weight loss; R14.0 Abdominal distension (gaseous); R62.7 Adult failure to thrive; R10.9 Unspecified abdominal pain; E73.9 Lactose intolerance, unspecified | CPT/HCPCS: 99212 ==

== ENCOUNTER 2023-08-26 17:59 | Emergency (ER) | payer MEDICAID, SELFPAY ==
[2023-08-26 18:09] VITALS: BP 117/68; PULSE 88; RESP 18; TEMP 36.5; O2SAT 100; BMI 22.1
--- NOTE | 2023-08-26 18:09 | ED.ANIMALBIT ---
HPI - Animal Bite General Chief Complaint: Animal Bite Stated Complaint: Dog bite Time Seen by Provider: 08/26/23 18:15 Source: patient Mode of arrival: ambulatory Limitations: no limitations History of Present Illness HPI narrative: Patient is a 23-year-old female Reports last night she was bit by a neighbor's dog to the left lower leg, unaware of the vaccination status of the dog. Dog was on retractable leash and she reports that the bite was unprovoked. She reports the own the dog drove away after the incident happened she has been unable to make contact with them. Had pain this morning with walking but this has resolved. Date of last tetanus vaccination was May of 2023. No active bleeding Related Data Home Medications ?Medication ?Instructions ?Recorded ?Confirmed albuterol sulfate 90 mcg/actuation 2 puff inhalation Q6H PRN 07/19/23 aerosol inhaler vit no.95-ferrous 1 tab PO DAILY 07/19/23 fumarate 28 mg-folic acid 800 mcg tablet () sumatriptan succinate 100 mg tablet 100 mg PO Q4H PRN migraine 07/19/23 Previous Rx's ?Medication ?Instructions ?Recorded dicyclomine 20 mg tablet 20 mg PO QID 30 days #120 tabs 08/16/23 megestrol 40 mg tablet 40 mg PO BID #60 tabs 08/16/23 ondansetron HCl 4 mg tablet 4 mg PO BID-TID PRN nausea and 08/16/23 vomiting 14 days #30 tabs simethicone 180 mg capsule 180 mg PO .tidac 30 days #90 caps 08/16/23 bisacodyl 5 mg tablet,delayed 10 mg (2 x 5 mg) PO BEDTIME 2 days 08/17/23 release (Dulcolax (bisacodyl)) #4 tabs peg 3350-electrolytes 236 240 ml PO Q10M 1 day #4,000 mL 08/17/23 gram-22.74 gram-6.74 gram-5.86 gram solution (Golytely) amoxicillin 875 mg-potassium 1 tab PO BID #13 tabs 08/26/23 clavulanate 125 mg tablet Allergies Allergy/AdvReac Type Severity Reaction Status Date / Time lactose Allergy Severe Vomiting Verified 08/26/23 18:13 orange Allergy Intermediate Itching Verified 08/26/23 18:13 Review of Systems Review of Systems: Yes all other systems are reviewed and are negative [facility] Past Medical History Attestation statement: The following information was validated with the patient. Source: old records reviewed Medical History Weight loss Surgical History H/O wisdom tooth extraction S/P tonsillectomy History of esophagogastroduodenoscopy (EGD) H/O colonoscopy Family History Family History Father Cancer of kidney Mother Cervical cancer Paternal Uncle Colon cancer Maternal Aunt Breast cancer Paternal Grandfather Prostate cancer Social History Social History Household Members: Family Housing: Apartment Alcohol intake: current Alcohol intake frequency: a few times a week Comment: weekends Patient Tobacco Use Status: Never used Tobacco Substance Use Type: Marijuana Advance Directives: No Advance Directives Information Provided: No Physical Exam ED Vital Signs: Vital Signs - 24 hr 08/26/23 18:09 Temperature 97.7 F Pulse Rate 88 Respiratory Rate 18 Blood Pressure 117/68 Pulse Oximetry 100 Oxygen Delivery Method Room Air BMI result Body Mass Index 22.1 Appearance: Alert.?Oriented to person, place and time. No acute distress.?Normal affect. Neck: Normal inspection.? Neck supple.?? CVS: Heart sounds normal. Normal heart rate and rhythm.? Pulses normal.?? Respiratory: No respiratory distress.? Lung sounds clear to auscultation bilaterally?? Abdomen: Soft and non-tender. Normoactive bowel sounds. Skin: Skin warm and dry.? Normal skin color.? Left anterior/lateral calf with 2 0.5cm scabbed linear wound from animal bite Extremities: No lower extremity edema.? No calf ttp? Neuro: Moves all extremities spontaneously. Sensation intact bilaterally. . Ambulates with normal steady gait. Medications Administered Discontinued Medications Generic Name Dose Route Start Last Admin Trade Name Freq PRN Reason Stop Dose Admin Amoxicillin/Clavulanate Potassium 875 mg 08/26/23 18:18 08/26/23 19:09 Amoxicillin/Potassium Clav 875 Mg Tablet PO 08/26/23 18:19 875 mg ONCE ONE Administration Rabies Immune Globulin 1,026 unit 08/26/23 18:18 08/26/23 19:08 Rabies Immune Globulin/Pf 900 Unit/3 Ml Vial 20 unit/kg (1026 unit) 08/26/23 18:19 1,026 unit IM Administration ONCE ONE Rabies Vaccine Human Diploid Cell 1 ml 08/26/23 18:18 08/26/23 19:09 Rabies Vaccine, Human Diploid (Imovax) 1 Ml Vial IM 08/26/23 18:19 1 ml .ONCE ONE Administration Medical Decision Making Medical Decision Making MDM Narrative: Patient is a 23-year-old female who presents emergency department for evaluation of unprovoked dog bite to the left lower extremity as per HPI. Overall appears well. No active bleeding. Bites appear to be relatively superficial, already scabbed over. No localized swelling, erythema, warmth. No bony tenderness, localized tenderness on palpation. Ambulatory with a steady gait. Clinically have low suspicion for any osseous involvement, would defer XR imaging at this time. Tetanus vaccination is up-to-date. Vaccine status of the animal is unknown, she is interested in receiving rabies vaccination. Patient received rabies IG in 1st dose of vaccination in the emergency department, instructed for remainder rabies vaccination dosages, received 1st dose of Augmentin and sent remainder prescription to pharmacy. Discussed worrisome signs and symptoms that would warrant re-evaluation in the emergency department. All questions answered. Stable for discharge. Differential Diagnosis Differential Diagnoses: The differential diagnosis associated with the presentation includes (Animal bite, tetanus exposure, rabies exposure, see narrative above additionally) Tests considered The following testing was considered but not selected: See narrative above Prescription Management I considered prescription management with: Antibiotic Discharge Plan Discharge Clinical Impression: Dog bite Patient Disposition: Home, Self-Care Instructions: Animal Bite (ED), Rabies (ED) Additional Instructions: Complete the entire course of antibiotics as prescribed. If you develop redness, swelling, increased pain, fevers, chills, pus-like drainage from the area then please have this re-evaluated. Please follow the instructions provided in regards to the remainder of rabies vaccination series. Contact your primary care provider and arrange for a follow-up visit as needed. Prescriptions: New amoxicillin-pot clavulanate 875-125 mg tablet 1 tab PO BID Qty: 13 0RF No Action peg 3350-electrolytes [Golytely] 236-22.74-6.74 -5.86 gram recon soln 240 ml PO Q10M 1 Days Qty: 4000 0RF Rx Instructions: until fecal effluent is clear; do not exceed a total volume of 2,000 mL bisacodyl [Dulcolax (bisacodyl)] 5 mg tablet,delayed release (DR/EC) 10 mg PO BEDTIME 2 Days Qty: 4 0RF sumatriptan succinate 100 mg tablet 100 mg PO Q4H PRN (Reason: migraine) PNV cmb#95-ferrous fumarate-FA [] 28 mg iron- 800 mcg tablet 1 tab PO DAILY albuterol sulfate 90 mcg/actuation HFA aerosol inhaler 2 puff inhalation Q6H PRN megestrol 40 mg tablet 40 mg PO BID Qty: 60 2RF simethicone 180 mg capsule 180 mg PO .tidac 30 Days Qty: 90 3RF Rx Instructions: after meals dicyclomine 20 mg tablet 20 mg PO QID 30 Days Qty: 120 3RF ondansetron HCl 4 mg tablet 4 mg PO BID-TID PRN (Reason: nausea and vomiting) 14 Days Qty: 30 2RF Interventions: ED Discharge Assessment Last Done: 08/26/23 19:34 Discharge Date/Time: 08/26/23 19:36 Print Language: Gabonese
[2023-08-26] MEDS: Rabies Immune Globulin/PF 900 UNIT/3 ML VIAL 1026 UNIT IM (19:08)
[2023-08-26] MEDS: Rabies Vaccine, Human Diploid (Imovax) 1 ML VIAL IM (19:09)
[2023-08-26] MEDS: Amoxicillin/Potassium Clav 875 MG TABLET PO (19:09)
--- NOTE | 2023-08-26 19:22 | PC.NURSE ---
rabies order set faxed to [facility], fax confirmations received, filed in blue rabies binder in [facility]
[2023-08-26 19:34] VITALS: BP 117/68; PULSE 88; RESP 18; TEMP 36.5; O2SAT 100
== END 2023-08-26 19:36 | disposition home or self-care (01) ==
PROVIDERS: Emergency Provider Student in an Organized Health Care Education/Training Program; PCP General Practice
DX: S81.852A Open bite, left lower leg, initial encounter (principal); Z20.3 Contact with and (suspected) exposure to rabies; Z29.14 Encounter for prophylactic rabies immune globulin; W54.0XXA Bitten by dog, initial encounter; Y93.9 Activity, unspecified; Y92.9 Unspecified place or not applicable; Y99.9 Unspecified external cause status
CPT/HCPCS: 90375; 90471; 90675; 96372; 99282; 99284

== ENCOUNTER 2023-09-02 12:58 | Outpatient (REF) | payer MEDICAID, SELFPAY ==
[2023-09-02 16:43] LABS: Blood Urea Nitrogen 6 mg/dL (9-16); Estimated Glomerular Filt Rate > 60
== END 2023-09-02 12:59 | disposition home or self-care (01) ==
LOC: HO.CHCLDS 12:58
PROVIDERS: Visit Provider Nurse Practitioner
DX: R19.7 Diarrhea, unspecified (principal); R63.4 Abnormal weight loss; R10.9 Unspecified abdominal pain
CPT/HCPCS: 36415; 82565; 84520; 86003

== ENCOUNTER → 2023-09-20 08:07 | Outpatient (REF) | payer MEDICAID, SELFPAY ==
--- NOTE | ~2023-09-20 | NM_ITS ---
EXAMINATION: NM RADIONUCLIDE SOLID FOOD GASTRIC EMPTYING 4-HOUR STUDY CLINICAL INFORMATION: Nausea and weight loss and vomiting. COMPARISON: Abdominal ultrasound done on 08/01/2023. TECHNIQUE: A standard meal consisting of 4 oz of Egg Beaters brand tagged with 1000 microcuries Tc-99m Sulfur Colloid, 8 oz water and 2 slices of toast with jelly was administered orally to the patient. Images were obtained using a dual head gamma camera in the anterior and posterior projections over of the stomach immediately post ingestion and at hourly intervals up to 4 hours post ingestion. The anterior and posterior counts at each time interval were averaged using the geometric mean and expressed as percentage of the immediate post ingestion counts. FINDINGS: There is good visualization of activity in the stomach immediately post ingestion. As the study progresses, there is good clearance of activity from the stomach and visualization of progressively increasing small bowel activity. By the end of the study, there is almost no retention noted in the stomach. Retention in the stomach at each time interval was: 1 hour 65% (normal 37%-90%) 2 hours 20% (normal 30%-60%) 3 hours 8% 4 hours estimation was not performed since only 8% retention was noted at 3 hours interval. NM/NM gastric emptying study IMPRESSION: Normal 4-hour solid food gastric emptying study. For solid meal, rapid gastric emptying is less than 30% at 60 minutes. Delayed gastric emptying criteria is more than 60% remaining at 120 minutes or more than 10% at 240 minutes. The 4-hour value is the best discriminator of a normal or abnormal result). Gastric emptying study grading per JNMT Consensus Recommendations in 2008 (https://tech.snmjournals.org/content/36/44) Grade 1 (mild retention): 11-20% at 4h Grade 2 (moderate retention): 21-35% at 4h Grade 3 (severe retention): 36-50% at 4h Grade 4 (very severe retention): >50% retention at 4h
== END ==
LOC: HO.NUCMED 08:07
PROVIDERS: PCP General Practice; Visit Provider Nurse Practitioner
DX: R11.0 Nausea (principal); R63.4 Abnormal weight loss
CPT/HCPCS: 78264; A9541

== ENCOUNTER 2023-09-27 08:07 | Outpatient (AMB) | payer MEDICAID, SELFPAY ==
--- NOTE | 2023-09-27 08:15 | MHC.OFFVIS ---
Vital Signs 09/27/23 08:39 Height 5 ft Weight 111 lb BMI 21.7 BP 84/52 L Blood Pressure Location Lt brachial Position Sitting Pulse 82 Intake Visit Reasons: 6 week follow up Intake Note: Patient follow up for abdominal bloating and Gastric emptying test results Patient cc: Nauseas with food, abdominal pain and bloating after eating, denies any oter GI issues for today. 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7 - Adult failure to thrive Category: Medical (6) Weight loss, abnormal: Code(s): R63.4 - Abnormal weight loss Category: Medical (7) Abdominal pain: Code(s): R10.9 - Unspecified abdominal pain Category: Medical Plan She was seen in the ER recently and had labs that were all normal except for possible dehydration. There does not appear to be an ER note because she left without treatment. She went home and tried to hydrate has been trying to force herself to eat more because she is lost more weight again. Her BMI is currently 17 she is down another 10-15 lb which is quite concerning. Right now her nausea is quiescent as is her diarrhea. I am going to try putting her on Megace to increase her appetite along with a trial of dicyclomine because despite solid stool she still has severe bloating. I think simethicone is also reasonable. At this point we need to spread a wider net. We are going to get a CT scan of the abdomen pelvis since she has a past history of possible colon inflammation in the right lower quadrant area, also going to get an EGD and colonoscopy along with a gastric emptying study. I will also provide her with more Zofran for her episodic nausea and vomiting. At this point I will see her in 6 weeks to see how she is progressing on the medications. She is going to go back to recollect the RAST since the requisition was illegible and she is also going to do the stool studies. 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 Orders: Orders NM gastric emptying study 08/16/23 R11.0 - Nausea, R63.4 - Abnormal weight loss EGD/[place] Combo - GI Use Only 08/16/23 R63.4 - Abnormal weight loss, R10.9 - Unspecified abdominal pain Blood Urea Nitrogen 08/16/23 R10.9 - Unspecified abdominal pain, R63.4 - Abnormal weight loss Rast Allergen 08/16/23 R19.7 - Diarrhea, unspecified CT abdomen pelvis w IV con 08/16/23 R63.4 - Abnormal weight loss, R10.9 - Unspecified abdominal pain Creatinine 08/16/23 R10.9 - Unspecified abdominal pain, R63.4 - Abnormal weight loss Medications: New dicyclomine 20 mg PO QID 120 tabs 3RF 30 days R19.7 - Diarrhea, unspecified ondansetron HCl 4 mg PO BID-TID PRN 30 tabs 2RF nausea and vomiting 14 days R11.0 - Nausea megestrol 40 mg PO BID 60 tabs 2RF R62.7 - Adult failure to thrive, R63.4 - Abnormal weight loss simethicone after meals 180 mg PO .tidac 90 caps 3RF 30 days LABS: RAST panel shows allergies to cow's milk shrimp and scallops GASTRIC EMPTYING STUDY 09/20/23 MPRESSION: Normal 4-hour solid food gastric emptying study. CT OF THE ABDOMEN AND PELVIS Scheduled 10/03/2023 EGD/COLONOSCOPY Scheduled for 12/13/2023 with next appointment to see me 12/27/2023 TODAY'S VISIT RAST panel shows allergies to cow's milk, shrimp, scallops Only taking megace once a day instructed to increase to bid. Tolerating but no increase in appetite yet. zofran helpful, relieving more gas with simethicone. Using bentyl. She was very bloated with the GES eggs so EPI possible, has not yet provided stool but will start creon trial. Keep appt after EGD etc in december. [facility] Medical History Weight loss Surgical History H/O wisdom tooth extraction S/P tonsillectomy History of esophagogastroduodenoscopy (EGD) H/O colonoscopy Family History Father Cancer of kidney Mother Cervical cancer Paternal Uncle Colon cancer Maternal Aunt Breast cancer Paternal Grandfather Prostate cancer Social History Household Members: Family Housing: Apartment Alcohol intake: current Alcohol intake frequency: a few times a week Comment: weekends Patient Tobacco Use Status: Never used Tobacco Substance Use Type: Marijuana Review of Systems Const Denies fatigue, Denies fever(s), Denies night sweats, Denies poor appetite and Denies weight loss ENT Reports Normal hearing present, Denies dental pain, Denies dysphagia, Denies hearing loss, Denies mouth pain, Denies odynophagia, Denies throat swelling, Denies tongue swelling and Reports other (Dentition adequate) Card Reports no additional complaints Resp Reports no additional complaints GI Details: Denies abdominal pain, Denies melena, Reports bloating, Denies hematochezia, Denies constipation, Denies GI cramping, Denies dysphagia, Denies excessive flatus, Denies early satiety, Denies heartburn, Reports diarrhea, Reports nausea, Denies odynophagia, Denies vomiting and Denies hematemesis Skin/Breast Denies pruritus, Denies lesions, Denies rash and Denies jaundice Neuro Reports Normal hearing present and Denies Abnormal speech present Endo Denies fatigue Aller/Immun Denies throat swelling and Denies tongue swelling Physical Exam Vital Signs: Last Vital Signs Pulse 82 09/27/23 08:39 BP 84/52 L 09/27/23 08:39 BMI result Body Mass Index 21.7 Const General: cooperative, no acute distress, well developed and well groomed Nutritional Appearance: average body habitus and well nourished Orientation/consciousness: oriented to person, oriented to place and oriented to time Limitations: No language barrier HEENT Head: Yes normocephalic and Yes atraumatic Eyes General: appearance normal, both eyes and all related structures Pupils: Equal, round and reactive pupils present Neck Neck: Yes normal visual inspection and Yes no lymphadenopathy Thyroid: Thyroid normal Resp Effort & Inspection: normal respiratory effort and able to speak in complete sentences Auscultation: clear to auscultation bilaterally Cardio Rate: regular rate Rhythm: regular rhythm Heart sounds: Normal, physiologic split S2 sound present Peripheral pulses: radial pulses present and posterior tibial pulses present GI Inspection: No distended and No Abdominal panniculus present Palpation (GI): Soft to palpation, nontender, no guarding, not rigid and No hepatosplenomegaly present Percussion: Yes normal to percussion Auscultation: normal bowel sounds Rectal Exam - Female: deferred Skin General skin exam: no rashes or lesions noted, turgor normal, skin not dry, no jaundice, No spider nevi and no striae Rashes: no rashes Nails: normal Neuro General: oriented to person, oriented to place and oriented to time Cranial nerves: Yes Equal, round and reactive pupils present and Yes Normal hearing present Speech: No Abnormal speech present Extrem General: Yes normal to inspection, No clubbing, No cyanosis and No edema Psych Appearance: grossly normal and well kempt Mental Status: mental status grossly normal Speech and movement: Normal speech and movement present Affect: normal affect Attitude: cooperative Thought process: Normal thought process present and not confabulating Thought content: Normal thought content present Insight: Limited insight present (Psych) Judgement: Limited judgement present (Psych) Results Reviewed Results Reviewed: LABS: RAST panel shows allergies to cow's milk shrimp and scallops GASTRIC EMPTYING STUDY 09/20/23 MPRESSION: Normal 4-hour solid food gastric emptying study. Assessment & Plan Assessment & Plan (1) Abdominal pain: Code(s): R10.9 - Unspecified abdominal pain Category: Medical (2) Weight loss, abnormal: Code(s): R63.4 - Abnormal weight loss Category: Medical (3) Adult failure to thrive: Code(s): R62.7 - Adult failure to thrive Category: Medical (4) Diarrhea: Code(s): R19.7 - Diarrhea, unspecified Category: Medical (5) Nausea: Code(s): R11.0 - Nausea Category: Medical (6) Abdominal bloating: Code(s): R14.0 - Abdominal distension (gaseous) Category: Medical (7) Multiple food allergies: Comment: Cow's milk, shrimp scallops Code(s): Z91.018 - Allergy to other foods Category: Medical Plan RAST panel shows allergies to cow's milk, shrimp, scallops Only taking megace once a day instructed to increase to bid. Tolerating but no increase in appetite yet. zofran helpful, relieving more gas with simethicone. Using bentyl. She was very bloated with the GES eggs so EPI possible, has not yet provided stool but will start creon trial. Keep appt after EGD etc in december. CT OF THE ABDOMEN AND PELVIS Scheduled 10/03/2023 EGD/COLONOSCOPY Scheduled for 12/13/2023 with next appointment to see me 12/27/2023 Medications: New [id number]-swwnmlf 24,000-76,000 -120,000 unit (Creon) 2 caps PO BID 120 caps 6RF 30 days K58.9 - Irritable bowel syndrome without diarrhea Changed From ondansetron HCl 4 mg PO BID-TID 14 days PRN 30 tabs 2RF nausea and vomiting R11.0 - Nausea To ondansetron HCl 4 mg PO BID-TID PRN 90 tabs 2RF nausea and vomiting 30 days R11.0 - Nausea Coding Level of Care Code Est Pt Level 3 (35360) Diagnoses Abdominal pain R10.9 Weight loss, abnormal R63.4 Adult failure to thrive R62.7 Diarrhea R19.7 Nausea R11.0 Abdominal bloating R14.0 Multiple food allergies Z91.018
[2023-09-27 08:39] VITALS: BP 84/52; PULSE 82; BMI 21.7
== END 2023-09-27 09:22 | disposition home or self-care (01) ==
PROVIDERS: PCP General Practice; Visit Provider Nurse Practitioner
DX: R10.9 Unspecified abdominal pain (principal); R63.4 Abnormal weight loss; R62.7 Adult failure to thrive; R19.7 Diarrhea, unspecified; R11.0 Nausea; R14.0 Abdominal distension (gaseous); Z91.018 Allergy to other foods
CPT/HCPCS: 99213

== ENCOUNTER → 2023-09-27 08:07 | Outpatient (BNVA) | payer MEDICAID, SELFPAY | PROVIDERS: PCP General Practice; Visit Provider Nurse Practitioner | DX: R10.9 Unspecified abdominal pain (principal); R63.4 Abnormal weight loss; R62.7 Adult failure to thrive; R19.7 Diarrhea, unspecified; R11.0 Nausea; R14.0 Abdominal distension (gaseous); Z91.018 Allergy to other foods; Z79.899 Other long term (current) drug therapy | CPT/HCPCS: 99212 ==

== ENCOUNTER 2023-10-03 07:26 | Outpatient (REF) | payer MEDICAID, SELFPAY ==
--- NOTE | ~2023-10-03 | CT_ITS ---
EXAMINATION: CT ABDOMEN AND PELVIS WITH CONTRAST CLINICAL INFORMATION: Abnormal weight loss. COMPARISON: Abdominal ultrasound dated 08/01/2023. TECHNIQUE: Multidetector volumetric images were obtained from the superior aspect of the liver through the pubic symphysis following administration 85 mL of Omnipaque 350 intravenous contrast. Sagittal and coronal reformatted images were obtained on the technologist's workstation. Oral contrast: No This CT examination was performed using dose optimization techniques as appropriate, variously including the following: *Automated exposure control *Adjustment of mA and/or kV according to patient size (this includes techniques or standardized protocols for targeted exams where dose is matched to indication/reason for exam; i.e. extremities or head) *Use of iterative reconstruction technique DLP: 208 mGy-cm FINDINGS: LUNG BASES: The visualized lung bases are unremarkable. LIVER, GALLBLADDER, AND BILIARY TREE: The liver is normal in size, shape, and attenuation. No focal hepatic lesion or biliary ductal dilatation is present. The gallbladder is unremarkable with no evidence of radiopaque gallstones, gallbladder wall thickening, or obvious pericholecystic inflammatory changes. PANCREAS: Unremarkable. SPLEEN: Unremarkable. ADRENAL GLANDS: Unremarkable. KIDNEYS AND URETERS: The kidneys are normal in size, shape, and attenuation. No hydronephrosis, hydroureter, or calculi seen. No perinephric stranding. BLADDER: Unremarkable. GASTROINTESTINAL TRACT: The small and large bowel are unremarkable. The appendix is unremarkable. ABDOMINAL WALL: No significant hernia is appreciated. LYMPH NODES: Normal. VASCULAR: Unremarkable. PELVIC VISCERA: The uterus is unremarkable. There are benign, simple appearing bilateral ovarian cysts, the largest on the right showing a maximal diameter of 2.9 cm (3:61). These require no imaging follow-up. OSSEOUS STRUCTURES: Unremarkable. CT/CT abdomen pelvis w IV con IMPRESSION: No significant abnormality. Fleischner guidelines were followed.
[2023-10-03] MEDS: Barium Sulfate Oral (Vanilla) 450 ML ORAL.SUSP 900 ML PO (10:29)
[2023-10-03] MEDS: iohexoL 350 MG/ML 100 ML INFUS..BTL 85 ML IV (10:29)
== END 2023-10-03 07:27 | disposition home or self-care (01) ==
LOC: HO.CT 07:26
PROVIDERS: PCP General Practice; Visit Provider Nurse Practitioner
DX: R10.9 Unspecified abdominal pain (principal); R63.4 Abnormal weight loss
CPT/HCPCS: 74177; Q9967

== ENCOUNTER 2023-10-27 17:16 | Outpatient (REF) | payer MEDICAID, SELFPAY ==
[2023-10-28 09:22] LABS: CT PCR NOT DETECTED (Not Detect.); NG PCR NOT DETECTED (Not Detect.)
== END 2023-10-27 17:17 | disposition home or self-care (01) ==
LOC: HO.HHCLNP 17:16
PROVIDERS: Visit Provider Advanced Practice Midwife
DX: Z11.3 Encounter for screening for infections with a predominantly sexual mode of transmission (principal)
CPT/HCPCS: 0353U

== ENCOUNTER 2023-11-28 17:56 | Outpatient (REF) | payer MEDICAID, SELFPAY ==
[2023-11-29 10:44] LABS: Bacterial Vaginosis PCR NEGATIVE (Negative); Candida Group PCR NOT DETECTED (Not Detect); Candida glab krusei PCR NOT DETECTED (Not Detect); Trichomonas vaginalis PCR NOT DETECTED (Not Detect)
== END 2023-11-28 17:57 | disposition home or self-care (01) ==
LOC: HO.HHCLNP 17:56
PROVIDERS: Visit Provider Advanced Practice Midwife
DX: Z11.3 Encounter for screening for infections with a predominantly sexual mode of transmission (principal)
CPT/HCPCS: 0352U

== ENCOUNTER 2023-12-13 07:07 | Day surgery (SDC) | payer OTHER, SELFPAY ==
--- NOTE | 2023-12-12 09:15 | HO.ANESPROP2 ---
Documented by User: Fiordaliza Díaz NP 12/12/23 09:15 HPI - Anesthesia Eval Consult details Narrative: 23yo F for Upper Endoscopy and Colonoscopy PMF Active Problems Active Problems: All Active Problems Multiple food allergies (Acute) Abdominal pain (Acute) Weight loss, abnormal (Acute) Adult failure to thrive (Acute) Diarrhea (Acute) Nausea (Acute) Abdominal bloating (Acute) Major depressive disorder (Acute) Lactose intolerance (Acute) Alcohol use disorder (Acute) Cannabis use disorder (Acute) Migraines (Acute) Allergic rhinitis (Acute) Asthma (Acute) Past Medical History Medical History Weight loss Family History Family History Father Cancer of kidney Mother Cervical cancer Paternal Uncle Colon cancer Maternal Aunt Breast cancer Paternal Grandfather Prostate cancer Surgical History Surgical History H/O wisdom tooth extraction S/P tonsillectomy History of esophagogastroduodenoscopy (EGD) H/O colonoscopy Social History Social History Household Members: Family Housing: Apartment Alcohol intake: current Alcohol intake frequency: holidays/special occasions only Comment: weekends Patient Tobacco Use Status: Never used Tobacco Use of substances other than those prescribed or required for medical reasons: Yes Substance Use Type: Marijuana Substance Use Frequency: Daily Are you DNR?: No Advance Directives: No Advance Directives Information Provided: Yes Meds Allergies Allergy/AdvReac Type Severity Reaction Status Date / Time lactose Allergy Severe Vomiting Verified 09/27/23 08:36 orange Allergy Intermediate Itching Verified 09/27/23 08:36 Home Medications ?Medication ?Instructions ?Recorded ?Confirmed ?Last Taken ?Type albuterol sulfate 90 mcg/actuation 2 puff inhalation Q6H PRN 07/19/23 Unknown History aerosol inhaler vit no.95-ferrous 1 tab PO DAILY 07/19/23 Unknown History fumarate 28 mg-folic acid 800 mcg tablet () sumatriptan succinate 100 mg tablet 100 mg PO Q4H PRN migraine 07/19/23 Unknown History Assessment and Plan Assessment Anesthesia Assessment: Chart Reviewed Documented by User: Des Green MD 12/13/23 09:48 [facility] Past Medical History Medical History Weight loss Patient : No Family History Family History Father Cancer of kidney Mother Cervical cancer Paternal Uncle Colon cancer Maternal Aunt Breast cancer Paternal Grandfather Prostate cancer Family history of problems with anesthesia: No Surgical History Surgical History H/O wisdom tooth extraction S/P tonsillectomy History of esophagogastroduodenoscopy (EGD) H/O colonoscopy History of Problems with Anesthesia: No Social History Social History Household Members: Family Housing: Apartment Alcohol intake: current Alcohol intake frequency: holidays/special occasions only Comment: weekends Patient Tobacco Use Status: Never used Tobacco Use of substances other than those prescribed or required for medical reasons: Yes Substance Use Type: Marijuana Substance Use Frequency: Daily Are you DNR?: No Advance Directives: No Advance Directives Information Provided: Yes Meds Allergies Allergy/AdvReac Type Severity Reaction Status Date / Time lactose Allergy Severe Vomiting Verified 09/27/23 08:36 orange Allergy Intermediate Itching Verified 09/27/23 08:36 Home Medications ?Medication ?Instructions ?Recorded ?Confirmed ?Last Taken ?Type albuterol sulfate 90 mcg/actuation 2 puff inhalation Q6H PRN 07/19/23 Unknown History aerosol inhaler vit no.95-ferrous 1 tab PO DAILY 07/19/23 Unknown History fumarate 28 mg-folic acid 800 mcg tablet () sumatriptan succinate 100 mg tablet 100 mg PO Q4H PRN migraine 07/19/23 Unknown History Exam Airway Mallampati Class: II TM Dist: >3cm Neck ROM: Full Loose/Missing/Broken Teeth: No Heart: ok Lungs: ok Assessment and Plan Assessment Anesthesia Assessment: Anesthesia Plan Discussed Final Anesthetic Review Family History of Problems with Anesthesia: No History of Problems with Anesthesia: No NPO: Yes ASA Class: II Final Preanesthetic Review: No Changes in Pt Med Stat, Meds/Allgs Chart Reviewed, Consent Obtained/Reviewed and Anes Risks/Benef Reviewed Patient Risk: Low Procedure Risk: Intermediate Anesthetic Plan Anesthetic Plan: Agree w/ Assess. and Plan and TIVA Disposition: Standard PACU
[2023-12-13 08:35] VITALS: BP 108/69; PULSE 78; RESP 16; TEMP 36.5; O2SAT 100; BMI 22.9
--- NOTE | 2023-12-13 08:39 | MHC.SHP ---
Pre-Procedural Eval Section A - 24 Hr Update-Section A only Date of Service: 12/13/23 Section B - Complete if H&P > 30 days Chief Complaint: diarrhea,nausea,abnormal weight loss Relevant Family History (Specify if Yes): No Relevant Social History: None Present Medications: see Short Stay Collaborative assessment Medical History: Significant History (weight loss) History of Previous Operations: Relevant previous surgery/procedure and date(s) (H/O wisdom tooth extraction S/P tonsillectomy History of esophagogastroduodenoscopy (EGD) H/O colonoscopy) Allergies: Allergies Allergy/AdvReac Type Severity Reaction Status Date / Time lactose Allergy Severe Vomiting Verified 09/27/23 08:36 orange Allergy Intermediate Itching Verified 09/27/23 08:36 Review of Systems Sugical H&P ROS: Negative: Constitution, Cardiovascular, Respiratory, Neurological, Psychiatric, Hem-Onc, Allergic/Immunologic, Gastrointestinal, Genitourinary, Musculoskeletal, Integumentary, Endocrine and Eyes/Ears/Nose/Throat Exam Surgical H&P Exam: Normal: HEENT, Normal: Heart, Normal: Lungs, Normal: Extremities, Normal: Abdomen, Normal: Skin and Normal: Neurological Plan Diagnosis/Plan: Unchanged I have reviewed the history and physical and performed a pertinent physical examination on my patient. No changes have occurred unless specified. Time Spent With Patient Time: Total time managing care of this patient today ____ minutes.
--- NOTE | 2023-12-13 08:41 | PC.NURSE ---
md deng aware of jewelry- paper signed- ok to proceed
[2023-12-13 08:42] LABS: UPreg QC Valid YES; Urine Pregnancy NEGATIVE (NEGATIVE)
[2023-12-13] MEDS: Lactated Ringers 1,000 ML 100 ML IVCONT (08:55)
--- NOTE | 2023-12-13 09:42 | HO.OPN-COLON ---
Colonoscopy Operative Note Operative Note Date of Service: 12/13/23 Narrative: Operative Information Procedure Description: EGD, Colonoscopy Indication: weight loss, diarrhea, nausea Anesthesia: MAC FLEXIBLE TRANSORAL UPPER GASTROINTESTINAL ENDOSCOPY AND COLONOSCOPY PROCEDURE NOTE UPPER ENDOSCOPY Consent: Indications for the procedure and potential complications of bleeding, perforation, reaction to medications and missed diagnosis were discussed with the patient and informed consent was obtained. Instrument: Olympus GIF H 190 J mid size upper endoscope Monitoring: Vital signs and clinical assessment, continuous EKG monitoring, Pulse oximetry, Carbon Dioxide monitoring and blood pressure monitoring were done throughout the procedure. Procedure: The patient was placed in the left lateral decubitis position and pre-procedure medications were administered and a bite block was placed. The endoscope was inserted into the mouth and advanced under direct vision to the third part of duodenum. A careful inspection was made as the upper endoscope was withdrawn including a retroflexed examination of the proximal stomach; Findings and interventions are described below. Findings: Larynx:normal Esophagus: GE junction at 40 cm, diaphragm hiatus at 40 cm, normal mucosa -bx taken from distal and proximal esophagus Stomach: Normal mucosa. Biopsies were obtained. Grade 2 flap valve on retroflexed examination of the cardia. Duodenum: Normal bulb and descending duodenum, bx taken Intervention: Biopsies as noted above, COLONOSCOPY Instrument: Olympus variable stiffness pediatric scope 190L Colonoscopy Monitoring: Vital signs and clinical assessment, continuous EKG monitoring, Pulse oximetry, Carbon Dioxide monitoring and blood pressure monitoring were done throughout the procedure. Colon withdrawal time was 7 minutes. Procedure: The patient was placed in the left lateral decubitis position and pre-procedure medications were administered. After a digital rectal examination of the ano-rectum, the video colonoscope was inserted into the rectum and advanced through the colon to the cecum/TI. The colonoscope was slowly withdrawn in a retrograde panoramic fashion and the colon mucosa was carefully examined including a retroflexed view of the rectum. Findings and interventions are described below. Procedure Difficulty:moderate Findings: Terminal Ileum-normal, bx taken Random colon bx taken Cecum:normal Ascending Colon: normal Transverse Colon -normal Descending Colon:normal Sigmoid Colon: normal Rectum: Retroflexion with small internal hemorrhoids, grade I Anorectum - normal Colon preparation: [place] Bowel Preparation Scale Right colon; 2 Transverse colon: 2 Left colon; 2 (0 = Unprepared colon segment with mucosa not seen due to solid stool that cannot be cleared. 1 = Portion of mucosa of the colon segment seen, but other areas of the colon segment not well seen due to staining, residual stool and/or opaque liquid. 2 = Minor amount of residual staining, small fragments of stool and/or opaque liquid, but mucosa of colon segment seen well. 3 = Entire mucosa of colon segment seen well with no residual staining, small fragments of stool or opaque liquid) Impression and Post Procedure Diagnosis: Endoscopy Findings: normal Colonoscopy Findings: internal hemorrhoids Plan: Await Pathology results Repeat Colonoscopy aged 45 or earlier if clinically indicated High fiber diet leaflet avoid straining at stool, epsom salts and sitz bath, anusol supps or cream Above findings were reviewed with the patient and relevant handouts were provided if indicated.
[2023-12-13 10:19] VITALS: BP 103/61; PULSE 85; RESP 16; TEMP 36.1; O2SAT 100
[2023-12-13 10:25] VITALS: BP 110/67; PULSE 89; RESP 15; O2SAT 100
[2023-12-13 10:30] VITALS: BP 109/72; PULSE 79; RESP 15; O2SAT 100
[2023-12-13 10:40] VITALS: BP 121/87; PULSE 81; RESP 18; TEMP 36.1; O2SAT 100
== END 2023-12-13 11:20 | disposition home or self-care (01) ==
PROVIDERS: Nurse Practitioner; PCP General Practice; Visit Provider Internal Medicine Gastroenterology
PROC: (CPT 45380; principal; 2023-12-13 10:00)
DX: R19.7 Diarrhea, unspecified (principal); K64.0 First degree hemorrhoids; R11.0 Nausea; R63.4 Abnormal weight loss; Z68.21 Body mass index [BMI] 21.0-21.9, adult; R14.0 Abdominal distension (gaseous); K44.9 Diaphragmatic hernia without obstruction or gangrene; E73.9 Lactose intolerance, unspecified; Z79.899 Other long term (current) drug therapy
CPT/HCPCS: 45380; 43239; 81025; 88305; 88313; 88342; J1596; J2704

== ENCOUNTER → 2023-12-13 07:07 | Outpatient (BNV) | payer OTHER, SELFPAY | PROVIDERS: PCP General Practice; Visit Provider Internal Medicine Gastroenterology | DX: R63.4 Abnormal weight loss (principal); R19.7 Diarrhea, unspecified; R11.0 Nausea; K64.0 First degree hemorrhoids | CPT/HCPCS: 43239; 45380 ==

== ENCOUNTER 2023-12-27 08:52 | Outpatient (AMB) | payer MEDICAID, SELFPAY ==
[2023-12-27 08:55] VITALS: BP 99/78; PULSE 81; BMI 22.5
--- NOTE | 2023-12-27 08:55 | A.OFFVIS_ITS ---
Vital Signs 12/27/23 08:55 Height 5 ft Weight 115 lb 1.301 oz BMI 22.5 BP 99/78 Blood Pressure Location Lt brachial Position Sitting Pulse 81 Intake Visit Reasons: s/p egd/colon Intake Note: Kary returns to in oficce visit today s/p EGD/Colonoscopy. CC: Patient states that she continues to have a little bit of stomach pain. She also reports having nausea but she is taking Zofran which per patient helps with sx. Patient not taking Megestrol, Creon, Dulcolax, or dicyclomine. Food And Drug Research Scientist Required: No Accompanied by: Self / Same As Patient Allergies lactose Allergy (Severe, Verified 12/27/23 09:02) Vomiting orange Allergy (Intermediate, Verified 12/27/23 09:02) Itching No Known Drug Allergies Allergy (Unknown, Verified 12/27/23 09:02) NKDA scallops Allergy (Unknown, Verified 12/27/23 09:02) Unknown shrimp Allergy (Unknown, Verified 12/27/23 09:02) Unknown HPI HPI s/p egd/colon: Details: Assessment & Plan (1) Abdominal pain: Code(s): R10.9 - Unspecified abdominal pain Category: Medical (2) Weight loss, abnormal: Code(s): R63.4 - Abnormal weight loss Category: Medical (3) Adult failure to thrive: Code(s): R62.7 - Adult failure to thrive Category: Medical (4) Diarrhea: Code(s): R19.7 - Diarrhea, unspecified Category: Medical (5) Nausea: Code(s): R11.0 - Nausea Category: Medical (6) Abdominal bloating: Code(s): R14.0 - Abdominal distension (gaseous) Category: Medical (7) Multiple food allergies: Comment: Cow's milk, shrimp scallops Code(s): Z91.018 - Allergy to other foods Category: Medical Plan RAST panel shows allergies to cow's milk, shrimp, scallops Only taking megace once a day instructed to increase to bid. Tolerating but no increase in appetite yet. zofran helpful, relieving more gas with simethicone. Using bentyl. She was very bloated with the GES eggs so EPI possible, has not yet provided stool but will start creon trial. Keep appt after EGD etc in december. CT OF THE ABDOMEN AND PELVIS Scheduled 10/03/2023 EGD/COLONOSCOPY Scheduled for 12/13/2023 with next appointment to see me 12/27/2023 Medications: New yurbwi-srjcdljt-zzosxas 24,000-76,000 -120,000 unit (Creon) 2 caps PO BID 120 caps 6RF 30 days K58.9 - Irritable bowel syndrome without diarrhea Changed From ondansetron HCl 4 mg PO BID-TID 14 days PRN 30 tabs 2RF nausea and vomiting R11.0 - Nausea To ondansetron HCl 4 mg PO BID-TID PRN 90 tabs 2RF nausea and vomiting 30 days R11.0 - Nausea EGD/COLONOSCOPY 12/13/23 Findings: Larynx:normal Esophagus: GE junction at 40 cm, diaphragm hiatus at 40 cm, normal mucosa -bx taken from distal and proximal esophagus Stomach: Normal mucosa. Biopsies were obtained. Grade 2 flap valve on retroflexed examination of the cardia. Duodenum: Normal bulb and descending duodenum, bx take Findings: Terminal Ileum-normal, bx taken Random colon bx taken Cecum:normal Ascending Colon: normal Transverse Colon -normal Descending Colon:normal Sigmoid Colon: normal Rectum: Retroflexion with small internal hemorrhoids, grade I Anorectum - normal Impression and Post Procedure Diagnosis: Endoscopy Findings: normal Colonoscopy Findings: internal hemorrhoids Plan: Await Pathology results Repeat Colonoscopy aged 45 or earlier if clinically indicated High fiber diet leaflet avoid straining at stool, epsom salts and sitz bath, anusol supps or cream Received: 12/13/23 Diagnosis A. Terminal ileum, biopsy: Terminal ileal mucosa within normal limits. B. Colon, random, biopsy: Colonic mucosa within normal limits. C. Duodenum, biopsy: Duodenal mucosa within normal limits. D. Stomach, biopsy: Antral-type and oxyntic mucosa with mild chronic inactive inflammation; no Helicobacter organisms seen. E. Esophagus, distal, biopsy: Squamous mucosa within normal limits; no inflammation seen. F. Esophagus, proximal, biopsy: Squamous epithelium within normal limits; no inflammation seen. CT ABDOMEN AND PELVIS 10/10/23 FINDINGS: LUNG BASES: The visualized lung bases are unremarkable. LIVER, GALLBLADDER, AND BILIARY TREE: The liver is normal in size, shape, and attenuation. No focal hepatic lesion or biliary ductal dilatation is present. The gallbladder is unremarkable with no evidence of radiopaque gallstones, gallbladder wall thickening, or obvious pericholecystic inflammatory changes. PANCREAS: Unremarkable. SPLEEN: Unremarkable. ADRENAL GLANDS: Unremarkable. KIDNEYS AND URETERS: The kidneys are normal in size, shape, and attenuation. No hydronephrosis, hydroureter, or calculi seen. No perinephric stranding. BLADDER: Unremarkable. GASTROINTESTINAL TRACT: The small and large bowel are unremarkable. The appendix is unremarkable. ABDOMINAL WALL: No significant hernia is appreciated. LYMPH NODES: Normal. VASCULAR: Unremarkable. PELVIC VISCERA: The uterus is unremarkable. There are benign, simple appearing bilateral ovarian cysts, the largest on the right showing a maximal diameter of 2.9 cm (3:61). These require no imaging follow-up. OSSEOUS STRUCTURES: Unremarkable. CT/CT abdomen pelvis w IV con IMPRESSION: No significant abnormality. TODAY'S VISIT RAST panel shows allergies to cow's milk, shrimp, scallops she could not tolerate the dicyclomine because her urine turned green and it seemed to resolve when she stopped it. The Megace just made her feel more nauseated so she stopped this as well. She continues on the simethicone which is helpful for gas and on the Zofran for nausea. However her pain and nausea seems to be occurring more frequently in his interfering with her ability to work. She is considering getting an FMLA. The pain tends to start in the upper abdomen but moves in radiates towards the umbilicus and also frequently affects of the lower bilateral quadrants. Her stomach will sometimes get rock hard with bloating. She did not waste picker the Creon yet because it was a 50 dollar co-pay but she thinks she can try it today. We did discuss [id number] as well as probiotic prebiotic supplements and I did warn her that sometimes prebiotic can cause excessive bloating and may worsen her symptoms. If she really wants to try it I think she can cautiously with the caveats of knowing that this could happen. Her sleep really is quite poor which is why she was recently started on mirtazapine. She is also on hydroxyzine for anxiety. I think will satisfied the mirtazapine temporarily although this is a great medication for sleep and give her a trial of imipramine. This could be of 2 prong benefit since it does strongly benefit the pain associated with irritable bowel syndrome and also could have a beneficial effect on sleep due to the anticholinergic affects. Will try it at a low dose of 10 mg and I will ask her to satisfied the mirtazapine temporarily so we can see how it affects her and we can add the other back in cautiously. She tolerated the procedures well and we discussed all of these results including CT scan which really did not give us, thankfully, any severe pathology to explain her symptoms. Return office visit in 4 weeks [facility] Medical History Weight loss Surgical History H/O wisdom tooth extraction S/P tonsillectomy History of esophagogastroduodenoscopy (EGD) H/O colonoscopy Family History Father Cancer of kidney Mother Cervical cancer Paternal Uncle Colon cancer Maternal Aunt Breast cancer Paternal Grandfather Prostate cancer Social History Household Members: Family Housing: Apartment 75 years or older and lives alone: No Alcohol intake: current Alcohol intake frequency: holidays/special occasions only Comment: weekends Patient Tobacco Use Status: Never used Tobacco Substance Use Type: Marijuana Review of Systems Const Denies fatigue, Denies fever(s), Denies night sweats, Denies poor appetite and Denies weight loss Eyes Details: glasses Reports requires corrective lenses ENT Reports Normal hearing present, Denies dental pain, Denies dysphagia, Denies hearing loss, Denies mouth pain, Denies odynophagia, Denies throat swelling, Denies tongue swelling and Reports other (Dentition adequate) Card Reports no additional complaints Resp Reports no additional complaints GI Details: Reports abdominal pain, Denies melena, Reports bloating, Denies hematochezia, Denies constipation, Denies GI cramping, Denies dysphagia, Denies excessive flatus, Denies early satiety, Denies heartburn, Reports diarrhea, Reports nausea, Denies odynophagia, Denies vomiting and Denies hematemesis Skin/Breast Denies pruritus, Denies lesions, Denies rash and Denies jaundice Neuro Reports Normal hearing present and Denies Abnormal speech present Psych Reports abnormal sleep pattern and Reports anxiety Endo Denies fatigue Aller/Immun Denies throat swelling and Denies tongue swelling Physical Exam Vital Signs: Last Vital Signs Pulse 81 12/27/23 08:55 BP 99/78 12/27/23 08:55 BMI result Body Mass Index 22.5 Const General: cooperative, no acute distress, well developed and well groomed Nutritional Appearance: average body habitus and well nourished Orientation/consciousness: oriented to person, oriented to place and oriented to time Limitations: No language barrier HEENT Head: Yes normocephalic and Yes atraumatic Eyes General: appearance normal, both eyes and all related structures Pupils: Equal, round and reactive pupils present Neck Neck: Yes normal visual inspection and Yes no lymphadenopathy Thyroid: Thyroid normal Resp Effort & Inspection: normal respiratory effort and able to speak in complete sentences Auscultation: clear to auscultation bilaterally Cardio Rate: regular rate Rhythm: regular rhythm Heart sounds: Normal, physiologic split S2 sound present Peripheral pulses: radial pulses present and posterior tibial pulses present GI Inspection: No distended and No Abdominal panniculus present Palpation (GI): Soft to palpation, Tenderness to palpation present (GI) periumbilically, no guarding, not rigid and No hepatosplenomegaly present Percussion: Yes normal to percussion Auscultation: normal bowel sounds Rectal Exam - Female: deferred Skin General skin exam: no rashes or lesions noted, turgor normal, skin not dry, no jaundice, No spider nevi and no striae Rashes: no rashes Nails: normal Neuro General: oriented to person, oriented to place and oriented to time Cranial nerves: Yes Equal, round and reactive pupils present and Yes Normal hearing present Speech: No Abnormal speech present Extrem General: Yes normal to inspection, No clubbing, No cyanosis and No edema Psych Appearance: grossly normal and well kempt Mental Status: mental status grossly normal Speech and movement: Normal speech and movement present Affect: normal affect Attitude: cooperative Thought process: Normal thought process present and not confabulating Thought content: Normal thought content present Insight: Limited insight present (Psych) Judgement: Limited judgement present (Psych) Results Reviewed Results Reviewed: EGD/COLONOSCOPY 12/13/23 Findings: Larynx:normal Esophagus: GE junction at 40 cm, diaphragm hiatus at 40 cm, normal mucosa -bx taken from distal and proximal esophagus Stomach: Normal mucosa. Biopsies were obtained. Grade 2 flap valve on retroflexed examination of the cardia. Duodenum: Normal bulb and descending duodenum, bx take Findings: Terminal Ileum-normal, bx taken Random colon bx taken Cecum:normal Ascending Colon: normal Transverse Colon -normal Descending Colon:normal Sigmoid Colon: normal Rectum: Retroflexion with small internal hemorrhoids, grade I Anorectum - normal Impression and Post Procedure Diagnosis: Endoscopy Findings: normal Colonoscopy Findings: internal hemorrhoids Plan: Await Pathology results Repeat Colonoscopy aged 45 or earlier if clinically indicated High fiber diet leaflet avoid straining at stool, epsom salts and sitz bath, anusol supps or cream Received: 12/13/23 Diagnosis A. Terminal ileum, biopsy: Terminal ileal mucosa within normal limits. B. Colon, random, biopsy: Colonic mucosa within normal limits. C. Duodenum, biopsy: Duodenal mucosa within normal limits. D. Stomach, biopsy: Antral-type and oxyntic mucosa with mild chronic inactive inflammation; no Helicobacter organisms seen. E. Esophagus, distal, biopsy: Squamous mucosa within normal limits; no inflammation seen. F. Esophagus, proximal, biopsy: Squamous epithelium within normal limits; no inflammation seen. CT ABDOMEN AND PELVIS 10/10/23 FINDINGS: LUNG BASES: The visualized lung bases are unremarkable. LIVER, GALLBLADDER, AND BILIARY TREE: The liver is normal in size, shape, and attenuation. No focal hepatic lesion or biliary ductal dilatation is present. The gallbladder is unremarkable with no evidence of radiopaque gallstones, gallbladder wall thickening, or obvious pericholecystic inflammatory changes. PANCREAS: Unremarkable. SPLEEN: Unremarkable. ADRENAL GLANDS: Unremarkable. KIDNEYS AND URETERS: The kidneys are normal in size, shape, and attenuation. No hydronephrosis, hydroureter, or calculi seen. No perinephric stranding. BLADDER: Unremarkable. GASTROINTESTINAL TRACT: The small and large bowel are unremarkable. The appendix is unremarkable. ABDOMINAL WALL: No significant hernia is appreciated. LYMPH NODES: Normal. VASCULAR: Unremarkable. PELVIC VISCERA: The uterus is unremarkable. There are benign, simple appearing bilateral ovarian cysts, the largest on the right showing a maximal diameter of 2.9 cm (3:61). These require no imaging follow-up. OSSEOUS STRUCTURES: Unremarkable. CT/CT abdomen pelvis w IV con IMPRESSION: No significant abnormality. Assessment & Plan Assessment & Plan (1) Multiple food allergies: Comment: Cow's milk, shrimp scallops Code(s): Z91.018 - Allergy to other foods Category: Medical (2) Adult failure to thrive: Code(s): R62.7 - Adult failure to thrive Category: Medical (3) Abdominal bloating: Code(s): R14.0 - Abdominal distension (gaseous) Category: Medical (4) Nausea: Code(s): R11.0 - Nausea Category: Medical (5) Lactose intolerance: Code(s): E73.9 - Lactose intolerance, unspecified Category: Medical Plan (RAST panel shows allergies to cow's milk, shrimp, scallops she also has lactose intolerance and can not tolerate beef) she could not tolerate the dicyclomine because her urine turned green and it seemed to resolve when she stopped it. The Megace just made her feel more nauseated so she stopped this as well. She continues on the simethicone which is helpful for gas and on the Zofran for nausea. However her pain and nausea seems to be occurring more frequently in his interfering with her ability to work. She is considering getting an FMLA. The pain tends to start in the upper abdomen but moves in radiates towards the umbilicus and also frequently affects of the lower bilateral quadrants. Her stomach will sometimes get rock hard with bloating. She did not waste picker the Creon yet because it was a 50 dollar co-pay but she thinks she can try it today. We did discuss [id number] as well as probiotic prebiotic supplements and I did warn her that sometimes prebiotic can cause excessive bloating and may worsen her symptoms. If she really wants to try it I think she can cautiously with the caveats of knowing that this could happen. Her sleep really is quite poor which is why she was recently started on mirtazapine. She is also on hydroxyzine for anxiety. I think will satisfied the mirtazapine temporarily although this is a great medication for sleep and give her a trial of imipramine. This could be of 2 prong benefit since it does strongly benefit the pain associated with irritable bowel syndrome and also could have a beneficial effect on sleep due to the anticholinergic affects. Guerrero julia try it at a low dose of 10 mg and I will ask her to satisfied the mirtazapine temporarily so we can see how it affects her and we can add the other back in cautiously. She tolerated the procedures well and we discussed all of these results including CT scan which really did not give us, thankfully, any severe pathology to explain her symptoms. She is concerned about gaining weight. She admits that at least we seem to have stabilized her rapid weight loss but her weight will go up and down within 2 or 3 lb. I encouraged her that we need to stabilize her pain and get her able to tolerate a wider range of foods before we can expect any significant weight gain. We are continuing to work on this, and while I realize that the day to day trials for her are significant I try to offer her encouragement that this is not the end of our treatment plan despite the seemingly negative findings on EGD/colonoscopy and CT scan. This is likely a functional disorder and will need many medication trials to find what works best for her body. Hopefully at her next visit will be able to evaluate both the Creon and the imipramine. Return office visit in 4 weeks Medications: New imipramine HCl 10 mg PO BEDTIME 30 tabs 6RF 30 days Refilled simethicone after meals 180 mg PO .tidac 90 caps 3RF 30 days Discontinued dicyclomine Discontinued Reason: Patient no longer taking 20 mg PO QID 30 days 120 tabs 3RF R19.7 - Diarrhea, unspecified megestrol Discontinued Reason: Doctor's Order 40 mg PO BID 60 tabs 2RF R62.7 - Adult failure to thrive, R63.4 - Abnormal weight loss Coding Level of Care Code Est Pt Level 4 (71198) Diagnoses Multiple food allergies Z91.018 Adult failure to thrive R62.7 Abdominal bloating R14.0 Nausea R11.0 Lactose intolerance E73.9 Time Spent (min) 34
== END 2023-12-27 10:10 | disposition home or self-care (01) ==
PROVIDERS: PCP General Practice; Visit Provider Nurse Practitioner
DX: Z91.018 Allergy to other foods (principal); R62.7 Adult failure to thrive; R14.0 Abdominal distension (gaseous); R11.0 Nausea; E73.9 Lactose intolerance, unspecified
CPT/HCPCS: 99214

== ENCOUNTER → 2023-12-27 08:52 | Outpatient (BNVA) | payer OTHER, SELFPAY | PROVIDERS: PCP General Practice; Visit Provider Nurse Practitioner | DX: R62.7 Adult failure to thrive (principal); R14.0 Abdominal distension (gaseous); R11.0 Nausea; E73.9 Lactose intolerance, unspecified; Z91.018 Allergy to other foods | CPT/HCPCS: 99212 ==

== ENCOUNTER 2024-01-24 15:53 | Outpatient (AMB) | payer OTHER, SELFPAY ==
--- NOTE | 2024-01-24 15:55 | A.OFFVIS_ITS ---
Vital Signs 01/24/24 15:57 Height 5 ft Weight 116 lb 6.465 oz BMI 22.7 BP 107/72 Blood Pressure Location Rt brachial Position Sitting Pulse 80 Intake Visit Reasons: 4 weeks follow up Intake Note: Patient in office today in 4 weeks follow up abdominal bloating. CC: Patient states that she is feeling the same but she is having now more constipation. Per patient she is constipated for a few days and when takes the laxatives she gets diarrhea. Patient also reports having to force herself to eat d/t having no appetite. 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 Accompanied by: Self / Same As Patient Allergies lactose Allergy (Severe, Verified 01/24/24 16:00) Vomiting orange Allergy (Intermediate, Verified 01/24/24 16:00) Itching No Known Drug Allergies Allergy (Unknown, Verified 01/24/24 16:00) NKDA scallops Allergy (Unknown, Verified 01/24/24 16:00) Unknown shrimp Allergy (Unknown, Verified 01/24/24 16:00) Unknown HPI HPI 4 weeks follow up: Details: Assessment & Plan (1) Multiple food allergies: Comment: Cow's milk, shrimp scallops Code(s): Z91.018 - Allergy to other foods Category: Medical (2) Adult failure to thrive: Code(s): R62.7 - Adult failure to thrive Category: Medical (3) Abdominal bloating: Code(s): R14.0 - Abdominal distension (gaseous) Category: Medical (4) Nausea: Code(s): R11.0 - Nausea Category: Medical (5) Lactose intolerance: Code(s): E73.9 - Lactose intolerance, unspecified Category: Medical Plan (RAST panel shows allergies to cow's milk, shrimp, scallops she also has lactose intolerance and can not tolerate beef) she could not tolerate the dicyclomine because her urine turned green and it seemed to resolve when she stopped it. The Megace just made her feel more nauseated so she stopped this as well. She continues on the simethicone which is helpful for gas and on the Zofran for nausea. However her pain and nausea seems to be occurring more frequently in his interfering with her ability to work. She is considering getting an FMLA. The pain tends to start in the upper abdomen but moves in radiates towards the umbilicus and also frequently affects of the lower bilateral quadrants. Her stomach will sometimes get rock hard with bloating. She did not case picker the Creon yet because it was a 50 dollar co-pay but she thinks she can try it today. We did discuss [id number] as well as probiotic prebiotic supplements and I did warn her that sometimes prebiotic can cause excessive bloating and may worsen her symptoms. If she really wants to try it I think she can cautiously with the caveats of knowing that this could happen. Her sleep really is quite poor which is why she was recently started on mirtazapine. She is also on hydroxyzine for anxiety. I think will suspend the mirtazapine temporarily although this is a great medication for sleep and give her a trial of imipramine. This could be of 2 prong benefit since it does strongly benefit the pain associated with irritable bowel syndrome and also could have a beneficial effect on sleep due to the anticholinergic affects. Will try it at a low dose of 10 mg and I will ask her to satisfied the m irtazapine temporarily so we can see how it affects her and we can add the other back in cautiously. She tolerated the procedures well and we discussed all of these results including CT scan which really did not give us, thankfully, any severe pathology to explain her symptoms. She is concerned about gaining weight. She admits that at least we seem to have stabilized her rapid weight loss but her weight will go up and down within 2 or 3 lb. I encouraged her that we need to stabilize her pain and get her able to tolerate a wider range of foods before we can expect any significant weight gai n. We are continuing to work on this, and while I realize that the day to day trials for her are significant I try to offer her encouragement that this is not the end of our treatment plan despite the seemingly negative findings on EGD/colonoscopy and CT scan. This is likely a functional disorder and will need many medication trials to find what works best for her body. Hopefully at her next visit will be able to evaluate both the Creon and the imipramine. Return office visit in 4 weeks Medications: New imipramine HCl 10 mg PO BEDTIME 30 tabs 6RF 30 days Refilled simethicone after meals 180 mg PO .tidac 90 caps 3RF 30 days Discontinued dicyclomine Discontinued Reason: Patient no longer taking 20 mg PO QID 30 days 120 tabs 3RF R19.7 - Diarrhea, unspecified megestrol Discontinued Reason: Doctor's Order 40 mg PO BID 60 tabs 2RF R62.7 - Adult failure to thrive, R63.4 - Abnormal weight loss TODAYS VISIT The creon was too expensive for her with $50 copay - discussed OTC and [email or web address] Life Extension digestive enzymes. She forgot to case picker the imipramine will today. She continues on simethicone. Was taking coenzyme q-10 thinking this was similar to crejamia - explained the difference. Likely not helpful for the gut. Pain has bee somewhat better with some initial harder stool followed immediately by diarrhea. ROV 8 weeks. PFSH Medical History Weight loss Surgical History H/O wisdom tooth extraction S/P tonsillectomy History of esophagogastroduodenoscopy (EGD) H/O colonoscopy Family History Father Cancer of kidney Mother Cervical cancer Paternal Uncle Colon cancer Maternal Aunt Breast cancer Paternal Grandfather Prostate cancer Social History Household Members: Family Housing: Apartment 75 years or older and lives alone: No Alcohol intake: current Alcohol intake frequency: holidays/special occasions only Comment: weekends Patient Tobacco Use Status: Never used Tobacco Substance Use Type: Marijuana Review of Systems Const Denies fatigue, Denies fever(s), Denies night sweats, Denies poor appetite and Denies weight loss Eyes Details: glasses Reports requires corrective lenses ENT Reports Normal hearing present, Denies dental pain, Denies dysphagia, Denies hearing loss, Denies mouth pain, Denies odynophagia, Denies throat swelling, Denies tongue swelling and Reports other (Dentition adequate) Card Reports no additional complaints Resp Reports no additional complaints GI Details: Denies abdominal pain, Denies melena, Reports bloating, Denies hematochezia, Denies constipation, Denies GI cramping, Denies dysphagia, Denies excessive flatus, Denies early satiety, Denies heartburn, Denies diarrhea, Denies nausea, Denies odynophagia, Denies vomiting and Denies hematemesis Skin/Breast Denies pruritus, Denies lesions, Denies rash and Denies jaundice Neuro Reports Normal hearing present and Denies Abnormal speech present Endo Denies fatigue Aller/Immun Denies throat swelling and Denies tongue swelling Physical Exam Vital Signs: Last Vital Signs Pulse 80 01/24/24 15:57 BP 107/72 01/24/24 15:57 BMI result Body Mass Index 22.7 Const General: cooperative, no acute distress, well developed and well groomed Nutritional Appearance: average body habitus and well nourished Orientation/consciousness: oriented to person, oriented to place and oriented to time Limitations: No language barrier HEENT Head: Yes normocephalic and Yes atraumatic Eyes General: appearance normal, both eyes and all related structures Pupils: Equal, round and reactive pupils present Neck Neck: Yes normal visual inspection and Yes no lymphadenopathy Thyroid: Thyroid normal Resp Effort & Inspection: normal respiratory effort and able to speak in complete sentences Auscultation: clear to auscultation bilaterally Cardio Rate: regular rate Rhythm: regular rhythm Heart sounds: Normal, physiologic split S2 sound present Peripheral pulses: radial pulses present and posterior tibial pulses present GI Inspection: No distended and No Abdominal panniculus present Palpation (GI): Soft to palpation, nontender, no guarding, not rigid and No hepatosplenomegaly present Percussion: Yes normal to percussion Auscultation: normal bowel sounds Rectal Exam - Female: deferred Skin General skin exam: no rashes or lesions noted, turgor normal, skin not dry, no jaundice, No spider nevi and no striae Rashes: no rashes Nails: normal Neuro General: oriented to person, oriented to place and oriented to time Cranial nerves: Yes Equal, round and reactive pupils present and Yes Normal hearing present Speech: No Abnormal speech present Extrem General: Yes normal to inspection, No clubbing, No cyanosis and No edema Psych Appearance: grossly normal and well kempt Mental Status: mental status grossly normal Speech and movement: Normal speech and movement present Affect: normal affect Attitude: cooperative Thought process: Normal thought process present and not confabulating Thought content: Normal thought content present Insight: Limited insight present (Psych) Judgement: Limited judgement present (Psych) Assessment & Plan Assessment & Plan (1) Multiple food allergies: Comment: Cow's milk, shrimp scallops Code(s): Z91.018 - Allergy to other foods Category: Medical (2) Abdominal pain: Code(s): R10.9 - Unspecified abdominal pain Category: Medical (3) Adult failure to thrive: Code(s): R62.7 - Adult failure to thrive Category: Medical (4) Diarrhea: Code(s): R19.7 - Diarrhea, unspecified Category: Medical Plan The creon was too expensive for her with $50 copay - discussed OTC and [email or web address][employer]cz Life Extension digestive enzymes. She forgot to case picker the imipramine will today. She continues on simethicone. Was taking coenzyme q-10 thinking this was similar to crejamia - explained the difference. Likely not helpful for the gut. Pain has bee somewhat better with some initial harder stool followed immediately by diarrhea. ROV 8 weeks. Coding Level of Care Code Est Pt Level 3 (31127) Diagnoses Multiple food allergies Z91.018 Abdominal pain R10.9 Adult failure to thrive R62.7 Diarrhea R19.7
[2024-01-24 15:57] VITALS: BP 107/72; PULSE 80; BMI 22.7
== END 2024-01-24 16:49 | disposition home or self-care (01) ==
PROVIDERS: PCP General Practice; Visit Provider Nurse Practitioner
DX: Z91.018 Allergy to other foods (principal); R10.9 Unspecified abdominal pain; R62.7 Adult failure to thrive; R19.7 Diarrhea, unspecified
CPT/HCPCS: 99213

== ENCOUNTER → 2024-01-24 15:53 | Outpatient (BNVA) | payer OTHER, SELFPAY | PROVIDERS: PCP General Practice; Visit Provider Nurse Practitioner | DX: R62.7 Adult failure to thrive (principal); R14.0 Abdominal distension (gaseous); R11.0 Nausea; E73.9 Lactose intolerance, unspecified; Z91.018 Allergy to other foods | CPT/HCPCS: 99212 ==